=== PATIENT | female | born 1960 | race Caucasian/White ===

== ENCOUNTER 2016-09-27 18:08 | Inpatient (IN) | payer OTHER ==
[~2016-09-27] VITALS: Ht 167.6 cm; Wt 100.0 kg
[~2016-09-27 18:08] MED LIST: ALBU8.5H5 INH; CYCL5TAB PO; DICL75TA2 PO; FENO48TA4 PO; FLOV110 INHALATION; FURO-109 PO; GABA300C16 PO; HYDR-762 PO; IBUP800T25 PO; LISI2.5T59 PO; MONT10TA21 PO; MTF1000T PO; PIOG30TA2 PO; POTA20TA15 PO; QUET200T PO; SERT100T PO; [UNRECOGNIZED DRUG - CODE] PO
--- NOTE | 2016-09-27 21:14 | ERA ---
ER Documentation Chief Complaint Date/Time DATE: 09/27/16 TIME: 21:13 Chief Complaint chest pain HPI The patient is a 56-year-old female, presenting to the ER because she has hot intermittent chest pain for a week, chest pain is worse today about 12 PM, 6/10 , no aggravating or relieving factor. She denies fever, chills, cough, neck pain, chest pain with exertion or vomiting or diaphoresis. She denies abdominal pain, vomiting, dysuria, diarrhea. She does not smoke nor drink Past medical history: Asthma, hypertension, dyslipidemia, depression, diabetes mellitus, chronic low back pain Past surgical history: Appendectomy, hysterectomy ROS All systems reviewed and are negative except as per history of present illness. Medications Home Meds Active Scripts Hydrocodone Bit-Acetaminophen* ([place]*) 10-325 Mg Tablet, 1 TAB PO Q6 Y for PAIN , #20 TAB Prov:SHELTON BIRMINGHAM PA-C 12/23/15 Reported Medications Albuterol Sulfate* (Albuterol Sulfate* HFA) 8.5 Gm Hfa.aer.ad, 1-2 PUFF INH Q4H Y for WHEEZING AND SOB, #1 INHALER 06/06/15 Quetiapine Fumarate* (Seroquel*) 200 Mg Tablet, 200 MG PO HS, TAB 06/06/15 Cyclobenzaprine Hcl* (Cyclobenzaprine Hcl*) 5 Mg Tablet, 5 MG PO TID, #90 TAB 06/06/15 Diclofenac Sodium* (Diclofenac Sodium*) 75 Mg Tablet.dr, 75 MG PO BID, #60 TAB 06/06/15 Fenofibrate Nanocrystallized* (Fenofibrate*) 48 Mg Tablet, 54 MG PO DAILY, TAB 06/06/15 Niacin* (Niaspan*) 1,000 Mg Tablet.sa, 1000 MG PO DAILY, TAB.SA 06/06/15 Fluticasone Propionate* (Flovent* 110) 13 Gm Aer.w.adap, 1 PUFF INHALATION DAILY , #1 INHALER 06/06/15 Gabapentin* (Gabapentin*) 300 Mg Capsule, 300 MG PO DAILY, #60 CAP 06/06/15 Montelukast Sodium* (Singulair*) 10 Mg Tablet, 10 MG PO QHS, #30 TAB 06/06/15 Potassium Chloride* (K-Dur*) 20 Meq Tab.prt.sr, 20 MEQ PO DAILY, TAB.SA 06/06/15 Metformin* (Glucophage*) 1,000 Mg Tablet, 1000 MG PO BID, #60 TAB 06/06/15 Lisinopril* (Lisinopril*) 2.5 Mg Tablet, 2.5 MG PO DAILY, #30 TAB 06/06/15 Furosemide* (Lasix*) 40 Mg Tablet, 40 MG PO DAILY, TAB 06/06/15 Ibuprofen* (Motrin*) 800 Mg Tab, 800 MG PO TID, TAB 06/06/15 Pioglitazone Hcl* (Actos*) 30 Mg Tablet, 30 MG PO DAILY, #30 TAB 06/06/15 Sertraline Hcl* (Zoloft*) 100 Mg Tablet, 100 MG PO DAILY, #30 TAB 06/06/15 Allergies Allergies: Coded Allergies: No Known Allergy (Unverified , 06/06/15) PMhx/Soc History of Surgery: Yes (APPENDECTOMY, PARTIAL HYSTERECTOMY) Anesthesia Reaction: No Hx Neurological Disorder: No Hx Respiratory Disorders: Yes (ASTHMA, BRONCHITIS) Hx Cardiac Disorders: Yes (HTN) Hx Psychiatric Problems: Yes (DEPRSSION) Hx Miscellaneous Medical Probl: Yes (HIGH CHOLESTEROL, HIGH POTASUIM) Hx Alcohol Use: No Hx Substance Use: No Hx Tobacco Use: No Physical Exam Vitals Vital Signs Date Time Temp Pulse Resp B/P Pulse Ox O2 Delivery O2 Flow Rate FiO2 09/27/16 23:00 98.0 91 20 113/63 100 Nasal Cannula 2.0 09/27/16 22:00 Nasal Cannula 2 09/27/16 18:24 98.0 99 20 129/58 96 Physical Exam Const: No acute distress. Head: Atraumatic. Eyes: Normal Conjunctiva. ENT: Normal External Ears, Nose and Mouth. Neck: Full range of motion. No meningismus. Resp: Clear to auscultation bilaterally. Cardio: Regular rate and rhythm, no murmurs. Abd: Soft, non distended, normal bowel sounds, non tender. Skin: No petechiae or rashes. Back: No midline or flank tenderness. Ext: No cyanosis, or edema. Neur: Awake and alert. No focal deficit Psych: Normal Mood and Affect. Result Diagram: 09/27/16220609/27/162206 Results 24 hrs Laboratory Tests Test 09/27/16 00:37 09/27/16 22:07 Creatine Kinase 59IU/L Creatine Kinase Index 0.8 Creatinine Kinase MB (Mass) 0.48ng/ml Troponin I < 0.012ng/ml < 0.012ng/ml White Blood Count 8.810^3/ul Red Blood Count 2.9310^6/ul Hemoglobin 9.1g/dl Hematocrit 28.8% Mean Corpuscular Volume 98.3fl Mean Corpuscular Hemoglobin 31.1pg Mean Corpuscular Hemoglobin Concent 31.6g/dl Red Cell Distribution Width 13.5% Platelet Count 12508^3/UL Mean Platelet Volume 9.9fl Neutrophils % 65.5% Lymphocytes % 23.4% Monocytes % 9.1% Eosinophils % 1.6% Basophils % 0.2% Nucleated Red Blood Cells % 0.0/100WBC Neutrophils # 5.810^3/ul Lymphocytes # 2.110^3/ul Monocytes # 0.810^3/ul Eosinophils # 0.110^3/ul Basophils # 0.010^3/ul Nucleated Red Blood Cells # 0.010^3/ul Prothrombin Time 13.6Sec Prothrombin Time Ratio 1.1 INR International Normalized Ratio 1.04 Activated Partial Thromboplast Time 29.4Sec Sodium Level 141mmol/L Potassium Level 5.7mmol/L Chloride Level 100mmol/L Carbon Dioxide Level 27mmol/L Anion Gap 20 Blood Urea Nitrogen 89mg/dl Creatinine 3.76mg/dl Glucose Level 122mg/dl Calcium Level 9.8mg/dl Current Medications Medications (Trade) Dose Ordered Sig/Nikolas Route PRN Reason Start Time Stop Time Status Last Admin Dose Admin Sodium Polystyrene Sulfonate (Kayexalate) 30 gm ONCE STAT PO 09/27/16 22:41 09/27/16 22:42 DC 09/27/16 23:08 Insulin Human Regular (Novolin-R) 10 unit ONCE STAT IV 09/27/16 22:41 09/27/16 22:42 DC 09/27/16 23:13 Dextrose (D50w Syringe) ONCE PRN IV POC BLOOD GLUCOSE <250 MG/DL 09/27/16 23:00 09/27/16 23:59 DC 09/27/16 23:07 Aspirin (Aspirin) 162 mg ONCE STAT PO 09/27/16 22:50 09/27/16 22:52 DC 09/27/16 23:08 Nitroglycerin (Nitroglycerin 2% Oint) 1 inch ONCE STAT TD 09/27/16 22:50 09/27/16 22:52 DC 09/27/16 23:08 IV Flush (NS 3 ml) 3 ml PER PROTOCOL IV 09/28/16 00:00 UNV Lorazepam (Ativan) 0.5 mg Q8H PRN PO ANXIETY 09/28/16 00:00 Metoclopramide HCl (Reglan) 10 mg Q6H PRN IV NAUSEA AND/OR VOMITING 09/28/16 00:00 Nitroglycerin (Nitroglycerin (Sl Tab) 0.4 Mg) 1 tab Q5M PRN SL CHEST PAIN 09/28/16 00:00 Acetaminophen (Tylenol Tab) 650 mg Q6H PRN PO PAIN LEVEL 1-3 OR FEVER 09/28/16 00:00 Morphine Sulfate (morphine) 4 mg Q4H PRN IV PAIN LEVEL 7-10 09/28/16 00:00 Famotidine (Pepcid) 20 mg Q12 PO 09/28/16 09:00 Insulin Aspart (Novolog Insulin Pen) NOVOLOG *MILD* ALGORITHM WITH MEALS BEDTIME SC 09/28/16 08:00 UNV Miscellaneous Information (* Miscellaneous Pharmacy Order) HYPOGLYCEMIA PROTOCOL w... ONCE ONCE XX 09/28/16 00:00 09/28/16 00:01 UNV Miscellaneous Information (* Miscellaneous Pharmacy Order) Discontinue Glyburide, Glipizide,... ONCE ONCE XX 09/28/16 00:00 09/28/16 00:01 UNV Miscellaneous Information (* Miscellaneous Pharmacy Order) Discontinue all previ... ONCE ONCE XX 09/28/16 00:00 09/28/16 00:01 UNV Diclofenac Sodium (Voltaren) 75 mg BID PO 09/28/16 09:00 UNV Fenofibrate (Tricor) 54 mg DAILY PO 09/28/16 09:00 UNV Furosemide (Lasix) 40 mg DAILY PO 09/28/16 09:00 UNV Gabapentin (Neurontin) 300 mg DAILY PO 09/28/16 09:00 UNV Lisinopril (Zestril) 2.5 mg DAILY PO 09/28/16 09:00 UNV Montelukast Sodium (Singulair) 10 mg QHS PO 09/28/16 21:00 UNV Quetiapine Fumarate (Seroquel) 200 mg HS PO 09/28/16 21:00 UNV Sertraline HCl (Zoloft) 100 mg DAILY PO 09/28/16 09:00 UNV Miscellaneous Information 1 puff DAILY INHALATION 09/28/16 09:00 UNV Albuterol (Proventil 0.083% (Neb)) 5 mg Q4H RESP THERAPY PRN HHN WHEEZING AND SOB 09/28/16 00:00 Procedures/[place] [id number] Radiology Main Line: [phone] DIAGNOSTIC IMAGING REPORT Patient: TONY HERNANDEZ : 1960 Age: 56 Sex: F MR #: [id number] DOS: 09/27/162131 Ordering MD: CHICO LAZO MD Location: E/R Room/Bed: PROCEDURE: XR Chest. CLINICAL INDICATION: Chest pain TECHNIQUE: Single frontal chest x-ray. COMPARISON: CT chest 06/06/2015 FINDINGS: There is mild cardiomegaly. There is prominence of the interstitial markings. There is mild elevation of the left hemidiaphragm. There are no pleural effusions or pneumothoraces. The osseous structures are intact. IMPRESSION: 1. Mild cardiomegaly with pulmonary vascular congestion. RPTAT: HHO .Boris Woo MD, MD Date Time Electronically viewed and signed by .Boris Woo MD, MD on 09/27/2016 22:27 .O/ CC: CHICO LAZO MD EKG: Read by emergency physician Rate/Rhythm: Normal Sinus Rhythm 95 beats/min QRS, ST, T-waves: No ST elevation, no T inversion, right bundle branch block Impression: Abnormal EKG MEDICAL MAKING DECISION: The patient is a 56-year-old female, presenting with acute chest pain, acute kidney injury, acute hyperkalemia. She was treated with aspirin 160 mg p.o. and 1 inch of nitroglycerin for acute chest pain, 1 amp of D50 IV, 10 units of Regular Insulin IV, and Kayexalate 30 g p.o. for acute hyperkalemia good response. The differential diagnoses considered include but are not limited to acute coronary syndrome, acute myocardial infarction, pericarditis, pulmonary embolism , aortic dissection, pneumonia, pleural effusion, pneumothorax, GERD, chest wall pain. Departure Diagnosis: Primary Impression: Chest pain Additional Impressions: Acute hyperkalemia Acute kidney injury Anemia Condition: Stable Comments I discussed the findings with the patient. I discussed the patient with the on- call hospitalist Dr. Lora who was made aware of the lab, the treatment, the patient condition. The patient is admitted to telemetry at 11:40 PM Critical Care: Time: 35 minutes excluding all billable procedures. Treatments/Evaluations: Close monitoring and treatment of unstable vital signs, cardiorespiratory, and neurologic status, while maintaining tight balance of fluid, respiratory, and cardiac interventions. CHICO LAZO MD Sep 27, 2016 21:14
[2016-09-27 22:15] LABS: ADD SCAN DIFF NO
[2016-09-27 22:16] LABS: BASOPHILS % 0.2 % (0.0-2.0); EOSINOPHILS # 0.1 10^3/ul (0.0-0.5); EOSINOPHILS % 1.6 % (0.0-7.0); HEMATOCRIT 28.8 % (37.0-47.0); HEMOGLOBIN 9.1 g/dl (12.0-16.0); LYMPHOCYTES # 2.1 10^3/ul (0.8-2.9); LYMPHOCYTES % 23.4 % (15.0-51.0); MEAN CORPUSCULAR HEMOGLOBIN 31.1 pg (29.0-33.0); MEAN CORPUSCULAR HGB CONC 31.6 g/dl (32.0-37.0); MEAN CORPUSCULAR VOLUME 98.3 fl (82.0-101.0); MEAN PLATELET VOLUME 9.9 fl (7.4-10.4); MONOCYTE # 0.8 10^3/ul (0.3-0.9); MONOCYTES % 9.1 % (0.0-11.0); NEUTROPHIL # 5.8 10^3/ul (1.6-7.5); NEUTROPHILS % 65.5 % (39.0-77.0); PLATELET COUNT 239 10^3/UL (140-415); RED BLOOD COUNT 2.93 10^6/ul (4.20-5.40); RED CELL DISTRIBUTION WIDTH 13.5 % (11.5-14.5); WHITE BLOOD COUNT 8.8 10^3/ul (4.8-10.8)
[2016-09-27 22:27] LABS: CHLORIDE 100 mmol/L (97-110); POTASSIUM 5.7 mmol/L (3.5-5.1); SODIUM 141 mmol/L (135-144)
--- NOTE | 2016-09-27 22:27 | RADRPT ---
PROCEDURE: XR Chest. CLINICAL INDICATION: Chest pain TECHNIQUE: Single frontal chest x-ray. COMPARISON: CT chest 06/06/2015 FINDINGS: There is mild cardiomegaly. There is prominence of the interstitial markings. There is mild elevat ion of the left hemidiaphragm. There are no pleural effusions or pneumothoraces. The osseous struc tures are intact. IMPRESSION: 1. Mild cardiomegaly with pulmonary vascular congestion. RPTAT: HHO .Boris Woo MD, MD Date Time Electronically viewed and signed by .Boris Woo MD, on 09/27/2016 22:27 .O/
[2016-09-27 22:30] LABS: ANION GAP 20 (8-16); BLOOD UREA NITROGEN 89 mg/dl (7-20); CARBON DIOXIDE 27 mmol/L (21-31); CREATININE 3.76 mg/dl (0.44-1.00)
[2016-09-27 22:31] LABS: CALCIUM 9.8 mg/dl (8.4-10.2); GLUCOSE 122 mg/dl (70-220)
[2016-09-27 22:35] LABS: INR 1.04; PROTIME 13.6 Sec (12.2-14.2); PT RATIO 1.1
[2016-09-27 22:36] LABS: PARTIAL THROMBOPLASTIN TIME 29.4 Sec (25.0-35.0)
[2016-09-27] MEDS ORDERED: INSULIN REGULAR 10 ML INJ IV STA (22:41)
[2016-09-27] MEDS ORDERED: NA POLYST SULFON 15 GM/60 ML BTL PO STA (22:41)
[2016-09-27 22:43] LABS: TROPONIN-I < 0.012 ng/ml (0.00-0.12)
[2016-09-27] MEDS ORDERED: NITROGLYCERIN 2% 1 GM OINT PKT TD STA (22:50)
[2016-09-27] MEDS ORDERED: ASPIRIN 81 MG TAB PO STA (22:50)
[2016-09-27] MEDS ORDERED: DEXTROSE 50% 50 ML SYRINGE IV PRN (23:00)
--- NOTE | 2016-09-27 23:54 | HP ---
Date/Time of Note Date/Time of Note DATE: 09/27/16 TIME: 23:53 Assessment/Plan VTE Prophylaxis VTE Prophylaxis Intervention: anti-embolic stocking Lines/Catheters IV Catheter Type (from Nrsg): Saline Lock Assessment/Plan Assessment/Plan 1) Chest pain - Admit to Telemetry - Serial Enzymes - Pain Control - Echocardiogram 2) Hyperkalemia, K+ 5.5 - Kayexalate given in ED 3) DM Type 2 - Diabetic Diet - Accu Chek AC and HS - Mild Sliding Scale 4) Anemia, Hgb 10 - CBC in AM 5) Acute kidney injury, Cr 3.8, Last Cr in 2014 was 1 with elevated BUN 89, in 2015 BUN 0.91 - Consider Nephrology Referral HPI/ROS Admit Date/Time Admit Date/Time 09/27/16 2343 Hx of Present Illness The patient is a 56-year-old female, presenting to the ER because she has hot intermittent chest pain for a week, chest pain is worse today about 12 PM, 11/17 , no aggravating or relieving factor. She denies fever, chills, cough, neck pain, chest pain with exertion or vomiting or diaphoresis. She denies abdominal pain, vomiting, dysuria, diarrhea. She does not smoke nor drink ROS General: Admits: Denies: Fever, Chills, Poor Appetite, Generalized Body Aches Eyes: Admits: Denies: Blurry Vision, Double Vision HENT: Admits: Denies: Ear Pain/Pressure, Runny/Stuffy Nose, Sore Throat Cardiovascular: Admits: Chest Pain, Denies: Palpitations, Leg Swelling Pulmonary: Admits: Denies: Cough, Wheeze, Shortness of Breath Gastrointestinal: Admits: Denies: Abdominal Pain, Nausea, Vomiting, Diarrhea, Blood in Stool, Black-Colored Stool Urogenital: Admits: Denies: Burning with Urination, Urinary Frequency, Blood in Urine Musculoskeletal: Admits: Denies: Joint Pain, Joint Swelling, Muscle Pain Neurological: Admits: Denies: Headache, Dizziness, Numbness, Tingling, Shooting Pains Integumentary: Admits: Denies: Rash, Itch PMH/Family/Social Past Medical History Asthma, bronchitis, hypertension, dyslipidemia, depression, diabetes mellitus, chronic low back pain, high potassium Past Surgical History Appendectomy, hysterectomy Social History Alcohol Use: none Smoking Status: Never smoker Drug Use: none Exam/Review of Systems Vital Signs Vitals Vital Signs Date Time Temp Pulse Resp B/P Pulse Ox O2 Delivery O2 Flow Rate FiO2 09/27/16 23:00 98.0 91 20 113/63 100 Nasal Cannula 2.0 Exam Exam General: Overweight female, alert, in no acute distress Eyes: Sclera White HENT: Normocephalic/Atraumatic, External Ears/Nose Normal, Moist Mucus Membranes Neck: Supple, Trachea Midline Cardiovascular: Normal Rate, Regular Rhythm, Normal S1 and S2, No Murmur, No Extra Sounds. Radial pulse +2/4. No pedal Edema. Pulmonary: Clear to Auscultation Bilaterally, Normal Respiratory Effort, No Rales, Rhonchi or Wheezes Gastrointestinal: Normoactive Bowel Sounds, Soft, Non-Tender/Non-Distended, No Hepatosplenomegaly Appreciated, No Pulsatile Masses Urogenital: Deferred Musculoskeletal: Normal Muscle Bulk and Tone Neurological: CN II - XII Grossly Intact, Non-Focal, Speech Normal Integumentary: Normal Moisture and Temperature, Good Turgor, No Jaundice, No Rash Lymphatic: No Cervical Lymphadenopathy Psychiatric: Appropriate Mood and Affect, Good Eye Contact Labs Result Diagram: 09/27/16220609/27/162206 Medications Medications Home Meds Active Scripts Hydrocodone Bit-Acetaminophen* ([place]*) 10-325 Mg Tablet, 1 TAB PO Q6 Y for PAIN , #20 TAB Prov:SHELTON BIRMINGHAM PA-C 12/23/15 Reported Medications Albuterol Sulfate* (Albuterol Sulfate* HFA) 8.5 Gm Hfa.aer.ad, 1-2 PUFF INH Q4H Y for WHEEZING AND SOB, #1 INHALER 06/06/15 Quetiapine Fumarate* (Seroquel*) 200 Mg Tablet, 200 MG PO HS, TAB 06/06/15 Cyclobenzaprine Hcl* (Cyclobenzaprine Hcl*) 5 Mg Tablet, 5 MG PO TID, #90 TAB 06/06/15 Diclofenac Sodium* (Diclofenac Sodium*) 75 Mg Tablet.dr, 75 MG PO BID, #60 TAB 06/06/15 Fenofibrate Nanocrystallized* (Fenofibrate*) 48 Mg Tablet, 54 MG PO DAILY, TAB 06/06/15 Niacin* (Niaspan*) 1,000 Mg Tablet.sa, 1000 MG PO DAILY, TAB.SA 06/06/15 Fluticasone Propionate* (Flovent* 110) 13 Gm Aer.w.adap, 1 PUFF INHALATION DAILY , #1 INHALER 06/06/15 Gabapentin* (Gabapentin*) 300 Mg Capsule, 300 MG PO DAILY, #60 CAP 06/06/15 Montelukast Sodium* (Singulair*) 10 Mg Tablet, 10 MG PO QHS, #30 TAB 06/06/15 Potassium Chloride* (K-Dur*) 20 Meq Tab.prt.sr, 20 MEQ PO DAILY, TAB.SA 06/06/15 Metformin* (Glucophage*) 1,000 Mg Tablet, 1000 MG PO BID, #60 TAB 06/06/15 Lisinopril* (Lisinopril*) 2.5 Mg Tablet, 2.5 MG PO DAILY, #30 TAB 06/06/15 Furosemide* (Lasix*) 40 Mg Tablet, 40 MG PO DAILY, TAB 06/06/15 Ibuprofen* (Motrin*) 800 Mg Tab, 800 MG PO TID, TAB 06/06/15 Pioglitazone Hcl* (Actos*) 30 Mg Tablet, 30 MG PO DAILY, #30 TAB 06/06/15 Sertraline Hcl* (Zoloft*) 100 Mg Tablet, 100 MG PO DAILY, #30 TAB 06/06/15 Current Medications Medications (Trade) Dose Ordered Sig/Nikolas Route PRN Reason Start Time Stop Time Status Last Admin Dose Admin Sodium Polystyrene Sulfonate (Kayexalate) 30 gm ONCE STAT PO 09/27/16 22:41 09/27/16 22:42 DC 09/27/16 23:08 Insulin Human Regular (Novolin-R) 10 unit ONCE STAT IV 09/27/16 22:41 09/27/16 22:42 DC 09/27/16 23:13 Dextrose (D50w Syringe) ONCE PRN IV POC BLOOD GLUCOSE <250 MG/DL 09/27/16 23:00 09/27/16 23:59 DC 09/27/16 23:07 Aspirin (Aspirin) 162 mg ONCE STAT PO 09/27/16 22:50 09/27/16 22:52 DC 09/27/16 23:08 Nitroglycerin (Nitroglycerin 2% Oint) 1 inch ONCE STAT TD 09/27/16 22:50 09/27/16 22:52 DC 09/27/16 23:08 IV Flush (NS 3 ml) 3 ml PER PROTOCOL IV 09/28/16 00:00 UNV Lorazepam (Ativan) 0.5 mg Q8H PRN PO ANXIETY 09/28/16 00:00 Metoclopramide HCl (Reglan) 10 mg Q6H PRN IV NAUSEA AND/OR VOMITING 09/28/16 00:00 Nitroglycerin (Nitroglycerin (Sl Tab) 0.4 Mg) 1 tab Q5M PRN SL CHEST PAIN 09/28/16 00:00 Acetaminophen (Tylenol Tab) 650 mg Q6H PRN PO PAIN LEVEL 1-3 OR FEVER 09/28/16 00:00 Morphine Sulfate (morphine) 4 mg Q4H PRN IV PAIN LEVEL 7-10 09/28/16 00:00 Famotidine (Pepcid) 20 mg Q12 PO 09/28/16 09:00 Insulin Aspart (Novolog Insulin Pen) NOVOLOG *MILD* ALGORITHM WITH MEALS BEDTIME SC 09/28/16 08:00 UNV Miscellaneous Information (* Miscellaneous Pharmacy Order) HYPOGLYCEMIA PROTOCOL w... ONCE ONCE XX 09/28/16 00:00 09/28/16 00:01 UNV Miscellaneous Information (* Miscellaneous Pharmacy Order) Discontinue Glyburide, Glipizide,... ONCE ONCE XX 09/28/16 00:00 09/28/16 00:01 UNV Miscellaneous Information (* Miscellaneous Pharmacy Order) Discontinue all previ... ONCE ONCE XX 09/28/16 00:00 09/28/16 00:01 UNV Diclofenac Sodium (Voltaren) 75 mg BID PO 09/28/16 09:00 UNV Fenofibrate (Tricor) 54 mg DAILY PO 09/28/16 09:00 UNV Furosemide (Lasix) 40 mg DAILY PO 09/28/16 09:00 UNV Gabapentin (Neurontin) 300 mg DAILY PO 09/28/16 09:00 UNV Lisinopril (Zestril) 2.5 mg DAILY PO 09/28/16 09:00 UNV Montelukast Sodium (Singulair) 10 mg QHS PO 09/28/16 21:00 UNV Quetiapine Fumarate (Seroquel) 200 mg HS PO 09/28/16 21:00 UNV Sertraline HCl (Zoloft) 100 mg DAILY PO 09/28/16 09:00 UNV Miscellaneous Information 1 puff DAILY INHALATION 09/28/16 09:00 UNV Albuterol (Proventil 0.083% (Neb)) 5 mg Q4H RESP THERAPY PRN HHN WHEEZING AND SOB 09/28/16 00:00 Procedures Procedures Laboratory Tests Test 09/27/16 00:37 09/27/16 22:07 Creatine Kinase 59IU/L Creatine Kinase Index 0.8 Creatinine Kinase MB (Mass) 0.48ng/ml Troponin I < 0.012ng/ml < 0.012ng/ml White Blood Count 8.810^3/ul Red Blood Count 2.9310^6/ul Hemoglobin 9.1g/dl Hematocrit 28.8% Mean Corpuscular Volume 98.3fl Mean Corpuscular Hemoglobin 31.1pg Mean Corpuscular Hemoglobin Concent 31.6g/dl Red Cell Distribution Width 13.5% Platelet Count 00132^3/UL Mean Platelet Volume 9.9fl Neutrophils % 65.5% Lymphocytes % 23.4% Monocytes % 9.1% Eosinophils % 1.6% Basophils % 0.2% Nucleated Red Blood Cells % 0.0/100WBC Neutrophils # 5.810^3/ul Lymphocytes # 2.110^3/ul Monocytes # 0.810^3/ul Eosinophils # 0.110^3/ul Basophils # 0.010^3/ul Nucleated Red Blood Cells # 0.010^3/ul Prothrombin Time 13.6Sec Prothrombin Time Ratio 1.1 INR International Normalized Ratio 1.04 Activated Partial Thromboplast Time 29.4Sec Sodium Level 141mmol/L Potassium Level 5.7mmol/L Chloride Level 100mmol/L Carbon Dioxide Level 27mmol/L Anion Gap 20 Blood Urea Nitrogen 89mg/dl Creatinine 3.76mg/dl Glucose Level 122mg/dl Calcium Level 9.8mg/dl EKG: Read by emergency physician Rate/Rhythm: Normal Sinus Rhythm 95 beats/min QRS, ST, T-waves: No ST elevation, no T inversion, right bundle branch block Impression: Abnormal EKG PROCEDURE: XR Chest. CLINICAL INDICATION: Chest pain TECHNIQUE: Single frontal chest x-ray. COMPARISON: CT chest 06/06/2015 FINDINGS: There is mild cardiomegaly. There is prominence of the interstitial markings. There is mild elevation of the left hemidiaphragm. There are no pleural effusions or pneumothoraces. The osseous structures are intact. IMPRESSION: 1. Mild cardiomegaly with pulmonary vascular congestion. SEPIDEH ESCALANTE DO Sep 27, 2016 23:54
[2016-09-28] MEDS ORDERED: NITROGLYCERIN (SL) 0.4 MG TAB SL PRN
[2016-09-28] MEDS ORDERED: ALBUTEROL 0.083% (NEB) 2.5 MG/3 ML AMP HHN PRN
[2016-09-28] MEDS ORDERED: METOCLOPRAMIDE 10 MG INJ IV PRN
[2016-09-28] MEDS ORDERED: NACL 0.9% 3 ML SYG IV SCH
[2016-09-28] MEDS ORDERED: LORAZEPAM 0.5 MG TAB PO PRN
[2016-09-28 01:03] LABS: CREATINE KINASE 59 IU/L (23-200)
[2016-09-28 01:13] LABS: CK-MB 0.48 ng/ml (0.0-2.4)
[2016-09-28 01:17] LABS: TROPONIN-I < 0.012 ng/ml (0.00-0.12)
[2016-09-28] MEDS: morphine 4 MG/ML VIAL IV PRN (02:00)
[2016-09-28] MEDS ORDERED: DEXTROSE 50% 50 ML SYRINGE IV PRN ×2 (02:30)
[2016-09-28] MEDS ORDERED: GLUCOSE GEL 15 GRAM TUBE PO PRN ×2 (02:30)
[2016-09-28] MEDS ORDERED: GLUCAGON 1 MG INJ IM PRN (02:30)
[2016-09-28] MEDS ORDERED: GLUCOSE GEL 15 GRAM TUBE BUCCAL PRN (02:30)
[2016-09-28] MEDS ORDERED: DEXTROSE 50% 50 ML SYRINGE IV ONE (04:30)
[2016-09-28 05:24] LABS: ADD SCAN DIFF NO
[2016-09-28 05:30] LABS: BASOPHILS % 0.1 % (0.0-2.0); EOSINOPHILS # 0.1 10^3/ul (0.0-0.5); EOSINOPHILS % 1.8 % (0.0-7.0); HEMATOCRIT 27.9 % (37.0-47.0); HEMOGLOBIN 8.3 g/dl (12.0-16.0); LYMPHOCYTES # 1.5 10^3/ul (0.8-2.9); MEAN CORPUSCULAR HEMOGLOBIN 29.2 pg (29.0-33.0); MEAN CORPUSCULAR HGB CONC 29.7 g/dl (32.0-37.0); MEAN CORPUSCULAR VOLUME 98.2 fl (82.0-101.0); MEAN PLATELET VOLUME 10.5 fl (7.4-10.4); MONOCYTE # 0.6 10^3/ul (0.3-0.9); NEUTROPHIL # 4.8 10^3/ul (1.6-7.5); NEUTROPHILS % 67.8 % (39.0-77.0); PLATELET COUNT 235 10^3/UL (140-415); RED BLOOD COUNT 2.84 10^6/ul (4.20-5.40); RED CELL DISTRIBUTION WIDTH 13.7 % (11.5-14.5); WHITE BLOOD COUNT 7.1 10^3/ul (4.8-10.8)
[2016-09-28 05:38] LABS: CREATINE KINASE 50 IU/L (23-200)
[2016-09-28 05:52] LABS: CK-MB 0.46 ng/ml (0.0-2.4)
[2016-09-28 05:53] LABS: CALCIUM 9.8 mg/dl (8.4-10.2); CHOL/HDL RATIO 4.6 RATIO; CREATININE 3.35 mg/dl (0.44-1.00); POTASSIUM 5.5 mmol/L (3.5-5.1); TROPONIN-I < 0.012 ng/ml (0.00-0.12)
[2016-09-28 06:24] LABS: THYROID STIMULATING HORMONE 0.599 MIU/L (0.465-4.680)
[2016-09-28 06:45] VITALS: TEMP 98.1
[2016-09-28] MEDS: INSULIN ASPART [NOVOLOG] 3 ML PEN SC SCH ×4 (08:00→23:20)
[2016-09-28] MEDS: FENOFIBRATE 48 MG TAB PO SCH (10:51)
[2016-09-28] MEDS: GABAPENTIN 300 MG CAP PO SCH (10:51)
[2016-09-28] MEDS: FAMOTIDINE 20 MG TAB PO SCH ×2 (10:51→21:50)
[2016-09-28] MEDS: SERTRALINE 100 MG TAB PO SCH (10:51)
[2016-09-28] MEDS ORDERED: DICLOFENAC (EC) 75 MG TAB PO SCH (11:00)
[2016-09-28] MEDS ORDERED: LISINOPRIL 5 MG TAB PO SCH (11:00)
[2016-09-28] MEDS ORDERED: FUROSEMIDE 40 MG TAB PO SCH (11:00)
--- NOTE | 2016-09-28 12:58 | RADRPT ---
PROCEDURE: Renal US. CLINICAL INDICATION: Acute kidney injury TECHNIQUE: Multiple sonographic images of the kidneys were obtained. The images were reviewed on a PACS workstation. COMPARISON: No prior studies are available for comparison. FINDINGS: The kidneys are well visualized. The right kidney measures 10.8 cm. The left kidney measures 9.8 cm. There are no focal areas of abnormal echogenicity. There is no evidence for obstructive uropathy. T he bladder is unremarkable. IMPRESSION: 1. Unremarkable renal ultrasound. RPTAT:AAJJ Physician Kelli Date Time Electronically viewed and signed by Physician Kelli on 09/28/2016 12:57 GABY/
--- NOTE | 2016-09-28 13:33 | CONS ---
DATE OF ADMISSION: 09/27/2016 DATE OF CONSULTATION: 09/28/2016 TYPE OF CONSULTATION: Nephrology. REASON FOR CONSULTATION: Acute kidney injury, hyperkalemia. PHYSICIAN REQUESTING CONSULT: Dr. Hu HISTORY OF PRESENT ILLNESS: This is a 56-year-old female with a past medical history of CKD, with a n unknown baseline creatinine, a history of diabetes, dyslipidemia, hypertension, a history of asthm a, a history of chronic lower back pain, who presented to [facility] with chest pa in described as a 11/17, with no alleviating or aggravating factors. The patient upon arrival to the emergency room had laboratory data drawn which showed a BUN of 89, creatinine 3.76 and a potassium of 5.7. The patient had a chest x-ray which showed findings of pulmonary vascular congestion. In [facility] emergency room the patient was given aspirin, nitroglycerin, Kayexalate and insulin. The patient had serial troponins checked, which were negative. In terms of the patient's renal history, the patient says she sees a horticulture instructor, but does not know the horticulture instructor's name. The patient does not know what her baseline renal function is. She belie ves she said she was told that her chronic kidney disease was due to her underlying diabetes and hyp ertension. The patient also states she has a history of kidney stones. She denies any frothy urine , denies any hematuria, dysuria, hemoptysis or rashes. PAST MEDICAL HISTORY: History of CKD, a history of hypertension, a history of asthma, depression, d yslipidemia. PAST SURGICAL HISTORY: History of a partial hysterectomy, appendectomy. FAMILY HISTORY: Noncontributory. SOCIAL HISTORY: She does not drink, smoke or do drugs. ALLERGIES: NO KNOWN DRUG ALLERGIES. REVIEW OF SYSTEMS: A 14-point review of systems was conducted. Pertinent positives as stated in [facility] HPI, otherwise negative. PHYSICAL EXAMINATION: VITAL SIGNS: Blood pressure is 102/68, respirations 10, pulse 74, temperature 98.1. HEENT: Head is normocephalic. Pupils are reactive to light. NECK: Supple. HEART: Regular rate. LUNGS: Showed diminished breath sounds at the base. ABDOMEN: Soft, nontender to palpation. No rebound or guarding. EXTREMITIES: Negative for clubbing or cyanosis. There is noted +1 edema. DERMATOLOGIC: No rashes. MUSCULOSKELETAL: Have no joint effusion. NEUROLOGIC: No focal deficits. LABORATORY DATA: Shows a sodium of 140, potassium 5.5, BUN 89, creatinine 3.35. WBC 7.1, hemoglobi n 8.3, hematocrit of 27.9, platelet count 235. ASSESSMENT AND PLAN: This is a 56-year-old female who presents with: 1. Nonoliguric acute kidney injury, with possible chronic kidney disease, with a previous baseline creatinine in 2015 of 1 mg/dL. Etiology of current acute kidney injury is multifactorial secondary to hemodynamics, NSAID use, TONYA inhibitor effect. The possibility of tubular injury is a considerat ion. Plan at this point is to do a full evaluation. Will check a urinalysis. Will evaluate under microscopy to see if there is any evidence of active sediment or tubular casts. Will check urine el ectrolytes, calculate a FENa (fractional excretion of urea). Will check a renal ultrasound to rule out obstruction. Would recommend to hold TONYA inhibitor at this time. Would consider holding diure tic therapy. Would otherwise continue supportive care, renally dose all meds, avoid nephrotoxins. Will repeat a renal panel to see if the patient's renal function has improved after receiving a flui d challenge and if hyperkalemia has subsequently improved. Will monitor closely. The patient's NSAI Ds will be discontinued. 2. Hyperkalemia. Etiology is multifactorial secondary to acute kidney injury, TONYA inhibitor effect , and NSAID use. The patient is status post Kayexalate and IV insulin. Plan is to hold TONYA inhibit or. Will place the patient on a low potassium renal diet and will repeat a potassium level. 3. Mineral bone disorder. Will check PTH and vitamin D25 level. Monitor calcium and phosphorus le vels. 4. Anemia, likely of chronic disease. Will monitor H and H levels. 5. Chest pain. Etiology is unclear if this is cardiac or musculoskeletal. The patient is being ru led out for acute coronary syndrome. Continue the current medical management, check serial troponin s, and follow up with the primary team. 6. Diabetes. Continue the current insulin regimen. 7. History of hypertension. Continue to monitor blood pressure. 8. Dyslipidemia. Continue statin therapy. 9. Morbid obesity. Continue dietary modifications. 10. Depression. Continue Seroquel and Zoloft. 11. History of asthma. Continue nebulizers and Singulair. Thank you, Dr. Hu, for this interesting consult. It will be a pleasure to follow up this patient w ith susan throughout the hospital course. Dictated By: EDMOND PEARCE/NAHUM Conf#: [id number] DID#: [id number]
--- NOTE | 2016-09-28 13:48 | RADRPT ---
Echocardiogram Report Patient Name: TONY HERNANDEZ Gender: Female Date: 1960 Study Date: 28-Sep-2016 Bed Laster: Hernán Ochoa RDCS Location: [facility] Ref. Physician: SEPIDEH ESCALANTE Quality: Adequate Procedures: Transthoracic echocardiogram with complete 2D, M-Mode, and doppler examination. Indications: Chest Pain. 2D/M Mode Doppler Measurement Value Normal Ranges Measurement Value Normal Ranges LVIDd 2D 4.3 3.5 - 5.6 cm AV Mean Benji 1.5 m/sec LVIDs 2D 2.3 2.1 - 4.1 cm AV Mean PG 10.1 mmHg LVPWd 2D 0.9 0.6 - 1.1 cm AV Peak Benji 2.3 m/sec IVSd 2D 1.0 0.6 - 1.1 cm AV Peak PG 20.8 mmHg AoR Diam 2D 2.3 2.0 - 3.7 cm AV VTI 40.3 cm EDV 2D 83.8 cm3 LVOT Mean Benji 1.1 m/sec ESV 2D 12.3 cm3 LVOT Mean PG 5.9 mmHg LA Dimen 2D 3.2 2.3 - 4.0 cm LVOT Peak Benji 1.7 m/sec LVOT Peak PG 11.4 mmHg LVOT VTI 32.3 cm MV E Peak Benji 0.7 m/sec MV A Peak Benji 1.0 m/sec MV E/A 0.7 MV Decel Time 145 msec MV Decel Keith 5 MV E/A 0.7 Findings Left Ventricle: Hyperdynamic left ventricular systolic function. Normal left ventricular cavity size. Normal left ventricular wall thickness. Ejection fraction is visually estimated at 70 %. Tissue Doppler/Mitral Doppler indices are consistent with impaired relaxation (Stage I diastolic dysfunction). Right Ventricle: Normal right ventricular size. Normal right ventricular systolic function. Left Atrium: The left atrium is normal in size. Right Atrium: The right atrium is normal in size. Mitral Valve: Normal appearance of the mitral valve. Mild mitral annular calcification. Trace mitral regurgitation. Aortic Valve: Aortic sclerosis without stenosis. Trace aortic valve regurgitation. Tricuspid Valve: Normal appearance and function of the tricuspid valve with trace physiologic regurgitation. Pulmonic Valve: Normal pulmonic valve appearance. Pericardium: Normal pericardium with no significant pericardial effusion. Aorta: Normal aortic root. IVC: Normal size and normal respiratory collapse consistent with normal right atrial pressure. Conclusions 1.Hyperdynamic left ventricular systolic function. Normal left ventricular cavity size. Normal left ventricular wall thickness. Ejection fraction is visually estimated at 70 %. Tissue Doppler/Mitral Doppler indices are consistent with impaired relaxation (Stage I diastolic dysfunction). 2.Normal right ventricular size. Normal right ventricular systolic function. 3.The left atrium is normal in size. 4.The right atrium is normal in size. 5.No significant valvular stenosis or regurgitation seen. 6.Normal pericardium with no significant pericardial effusion. Electronically Signed By: Aguilar Mays 28-Sep-2016 13:47:15 -0700 Patient Name: TONY HERNANDEZ Study Date: 28-Sep-2016 [id number]
[2016-09-28 16:15] LABS: POTASSIUM 4.7 mmol/L (3.5-5.1)
[2016-09-28 16:17] LABS: CREATINE KINASE 53 IU/L (23-200)
[2016-09-28 16:18] LABS: CALCIUM 9.6 mg/dl (8.4-10.2); CREATININE 2.67 mg/dl (0.44-1.00)
--- NOTE | 2016-09-28 16:20 | PN ---
Date/Time of Note Date/Time of Note DATE: 09/28/16 TIME: 16:00 Assessment/Plan VTE Prophylaxis VTE Prophylaxis Intervention: LMWH ( ) Lines/Catheters IV Catheter Type (from Nrs): Saline Lock Assessment/Plan Assessment/Plan 56-year-old female who presents with: 1. Chest pain r/o ACS 2. Acute kidney injury, with possible chronic kidney disease Etiology is multifactorial secondary to acute kidney injury, TONYA inhibitor effect, and NSAID use. 3. LUE paresis and paresthesias : May be associated with #1 or separate pathology 4. Severe disabling carlos Low back pain 5 . Hyperkalemia. 6. Diabetes Type 2. 7. Hypertension 8. Dyslipidemia. 9. Morbid obesity BMI 35 10. Chronic Depression. 11. History of asthma. Plan: * Echo reviewed and unremarkable save for hyperdynamic circulation noted / thyroid function wnl however * Complete ACS workup / Will have cardio review * CT brain and C spine in view of extremity paresis and numbness * CT abd and pelvis to eval carlos flank / back pain * Calorie controlled diet / SSI / home meds * PRN pain control/ antiemetics/ antipyretics/ supportive care * Further interventions per clinical course Subjective 24 Hr Interval Summary Free Text/Dictation Patient seen and evaluated. Has multiple complaints. 1. Weakness and paresthesias: Patient reports dropping things and inability to hold her cellphone by her left hand without dropping it. Reports his symptoms have been worsening over the last 3-6 days. Also has some numbness on the left side of her neck and her shoulders. 2. Patient also complaining of severe low back pain. States she seen a doctor multiple times for this. Reports never been worked up for this. It's not clear if these symptoms are associated with chest pain. Patient is a very poor historian. Exam/Review of Systems Vital Signs Vitals Vital Signs Date Time Temp Pulse Resp B/P Pulse Ox O2 Delivery O2 Flow Rate FiO2 09/28/16 10:00 99 15 107/75 100 Nasal Cannula 4.0 09/28/16 06:45 98.1 Exam Constitutional: alert, obese, No distress Psych: other (blank affect, poor speech direction) Head: atraumatic, normocephalic Eyes: PERRL, No icteric ENMT: mucosa pink and moist Neck: non-tender, supple, No jvd, No thyromegaly Respiratory: clear to auscultation, diminished breath sounds Cardiovascular: regular rate and rhythm, No murmurs/extra sounds Gastrointestinal: bowel sounds, distended (obese), non-tender, soft Extremities: edema (mild, non pitting versus obese) Neurological: nl mental status, nl speech, No confused, No focal weakness Skin: No rash or lesions Results Result Diagram: 09/28/16 0438 09/28/16 0438 Results 24 hrs Laboratory Tests Test 09/27/16 22:07 09/28/16 04:00 09/28/16 04:38 09/28/16 06:41 White Blood Count 8.8 # 7.1 Red Blood Count 2.93 #L 2.84 L Hemoglobin 9.1 #L 8.3 L Hematocrit 28.8 #L 27.9 L Mean Corpuscular Volume 98.3 98.2 Mean Corpuscular Hemoglobin 31.1 29.2 Mean Corpuscular Hemoglobin Concent 31.6 L 29.7 L Red Cell Distribution Width 13.5 13.7 Platelet Count 239 235 Mean Platelet Volume 9.9 # 10.5 H Neutrophils % 65.5 67.8 Lymphocytes % 23.4 21.0 Monocytes % 9.1 9.0 Eosinophils % 1.6 1.8 Basophils % 0.2 0.1 Nucleated Red Blood Cells % 0.0 0.0 Neutrophils # 5.8 4.8 Lymphocytes # 2.1 1.5 Monocytes # 0.8 0.6 Eosinophils # 0.1 0.1 Basophils # 0.0 0.0 Nucleated Red Blood Cells # 0.0 0.0 Prothrombin Time 13.6 Prothrombin Time Ratio 1.1 INR International Normalized Ratio 1.04 Activated Partial Thromboplast Time 29.4 Sodium Level 141 140 Potassium Level 5.7 H 5.5 H Chloride Level 100 105 Carbon Dioxide Level 27 25 Anion Gap 20 H 16 Blood Urea Nitrogen 89 H 89 H Creatinine 3.76 H 3.35 H Glucose Level 122 141 Hemoglobin A1c 6.1 H Calcium Level 9.8 9.8 Magnesium Level 2.2 Troponin I < 0.012 < 0.012 Bedside Glucose 54 L 87 Creatine Kinase 50 Creatine Kinase Index 0.9 Creatinine Kinase MB (Mass) 0.46 Triglycerides Level 175 H Cholesterol Level 194 LDL Cholesterol, Calculated 117 HDL Cholesterol 42 Cholesterol/HDL Ratio 4.6 Thyroid Stimulating Hormone (TSH) 0.599 Test 09/28/16 10:41 09/28/16 12:36 Bedside Glucose 107 131 Medications Medications Current Medications Lorazepam (Ativan) 0.5 mg Q8H PRN PO ANXIETY; Start 09/28/16 at 00:00 Metoclopramide HCl (Reglan) 10 mg Q6H PRN IV NAUSEA AND/OR VOMITING Last administered on 09/28/16 01:59; Admin Dose 10 MG; Start 09/28/16 at 00:00 Nitroglycerin (Nitroglycerin (Sl Tab) 0.4 Mg) 1 tab Q5M PRN SL CHEST PAIN; Start 09/28/16 at 00:00 Acetaminophen (Tylenol Tab) 650 mg Q6H PRN PO PAIN LEVEL 1-3 OR FEVER; Start at 00:00 Morphine Sulfate (morphine) 4 mg Q4H PRN IV PAIN LEVEL 7-10 Last administered on 09/28/16 02:00; Admin Dose 4 MG; Start 09/28/16 at 00:00 Famotidine (Pepcid) 20 mg Q12 PO Last administered on 09/28/16 10:51; Admin Dose 20 MG; Start 09/28/16 at 09:00 Fenofibrate (Tricor) 48 mg DAILY PO Last administered on 09/28/16 10:51; Admin Dose 48 MG; Start 09/28/16 at 11:00 Furosemide (Lasix) 40 mg DAILY PO Last administered on 09/28/16 10:53; Admin Dose 40 MG; Start 09/28/16 at 11:00; Status Future Hold Gabapentin (Neurontin) 300 mg DAILY PO Last administered on 09/28/16 10:51; Admin Dose 300 MG; Start 09/28/16 at 11:00 Lisinopril (Zestril) 2.5 mg DAILY PO Last administered on 09/28/16 10:52; Admin Dose 2.5 MG; Start 09/28/16 at 11:00; Status Future Hold Montelukast Sodium (Singulair) 10 mg QHS PO ; Start 09/28/16 at 21:00 Quetiapine Fumarate (Seroquel) 200 mg HS PO ; Start 09/28/16 at 21:00 Sertraline HCl (Zoloft) 100 mg DAILY PO Last administered on 09/28/16 10:51; Admin Dose 100 MG; Start 09/28/16 at 11:00 Mometasone Furoate (Asmanex) 1 puff DAILY INH ; Start 09/29/16 at 09:00 Miscellaneous Information 1 ea NOTE XX ; Start 09/28/16 at 02:30 Glucose (Glutose) 15 gm Q15M PRN PO DECREASED GLUCOSE; Start 09/28/16 at 02:30 Glucose (Glutose) 22.5 gm Q15M PRN PO DECREASED GLUCOSE; Start 09/28/16 at 02: 30 Dextrose (D50w Syringe) 25 ml Q15M PRN IV DECREASED GLUCOSE Last administered on 09/28/16 04:03; Admin Dose 50 ML; Start 09/28/16 at 02:30 Dextrose (D50w Syringe) 50 ml Q15M PRN IV DECREASED GLUCOSE; Start 09/28/16 at 02:30 Glucagon (Glucagen) 1 mg Q15M PRN IM DECREASED GLUCOSE; Start 09/28/16 at 02:30 Glucose (Glutose) 15 gm Q15M PRN BUCCAL DECREASED GLUCOSE; Start 09/28/16 at 02 :30 Diagnostic Test (Pha) (Accu-Chek) 1 ea 02 XX ; Start 09/29/16 at 02:00 Procedures Procedures PROCEDURE: Renal US. CLINICAL INDICATION: Acute kidney injury TECHNIQUE: Multiple sonographic images of the kidneys were obtained. The images were reviewed on a PACS workstation. COMPARISON: No prior studies are available for comparison. FINDINGS: The kidneys are well visualized. The right kidney measures 10.8 cm. The left kidney measures 9.8 cm. There are no focal areas of abnormal echogenicity. There is no evidence for obstructive uropathy. The bladder is unremarkable. IMPRESSION: 1. Unremarkable renal ultrasound. RPTAT:AAJJ Physician Kelli Date Time Electronically viewed and signed by Juaquin Patel Physician on 09/28/2016 12: 57 MC/ CC: EDMOND MONTEZ DO Echocardiogram Report Patient Name: TONY HERNANDEZ Gender: Female Date: 1960 Study Date: 28-Sep-2016 Band Cutter: Hernán Ochoa RDCS Location: [facility] Ref. Physician: SEPIDEH ESCALANTE Quality: Adequate Procedures: Transthoracic echocardiogram with complete 2D, M-Mode, and doppler examination. Indications: Chest Pain. 2D/M Mode Doppler Measurement Value Normal Ranges Measurement Value Normal Ranges LVIDd 2D 4.3 3.5 - 5.6 cm AV Mean Benji 1.5 m/sec LVIDs 2D 2.3 2.1 - 4.1 cm AV Mean PG 10.1 mmHg LVPWd 2D 0.9 0.6 - 1.1 cm AV Peak Benji 2.3 m/sec IVSd 2D 1.0 0.6 - 1.1 cm AV Peak PG 20.8 mmHg AoR Diam 2D 2.3 2.0 - 3.7 cm AV VTI 40.3 cm EDV 2D 83.8 cm3 LVOT Mean Benji 1.1 m/sec ESV 2D 12.3 cm3 LVOT Mean PG 5.9 mmHg LA Dimen 2D 3.2 2.3 - 4.0 cm LVOT Peak Benji 1.7 m/sec LVOT Peak PG 11.4 mmHg LVOT VTI 32.3 cm MV E Peak Benji 0.7 m/sec MV A Peak Benji 1.0 m/sec MV E/A 0.7 MV Decel Time 145 msec MV Decel Pitkin 5 MV E/A 0.7 Findings Left Ventricle: Hyperdynamic left ventricular systolic function. Normal left ventricular cavity size. Normal left ventricular wall thickness. Ejection fraction is visually estimated at 70 %. Tissue Doppler/Mitral Doppler indices are consistent with impaired relaxation (Stage I diastolic dysfunction). Right Ventricle: Normal right ventricular size. Normal right ventricular systolic function. Left Atrium: The left atrium is normal in size. Right Atrium: The right atrium is normal in size. Mitral Valve: Normal appearance of the mitral valve. Mild mitral annular calcification. Trace mitral regurgitation. Aortic Valve: Aortic sclerosis without stenosis. Trace aortic valve regurgitation. Tricuspid Valve: Normal appearance and function of the tricuspid valve with trace physiologic regurgitation. Pulmonic Valve: Normal pulmonic valve appearance. Pericardium: Normal pericardium with no significant pericardial effusion. Aorta: Normal aortic root. IVC: Normal size and normal respiratory collapse consistent with normal right atrial pressure. Conclusions 1. Hyperdynamic left ventricular systolic function. Normal left ventricular cavity size. Normal left ventricular wall thickness. Ejection fraction is visually estimated at 70 %. Tissue Doppler/Mitral Doppler indices are consistent with impaired relaxation (Stage I diastolic dysfunction). 2. Normal right ventricular size. Normal right ventricular systolic function. 3. The left atrium is normal in size. 4. The right atrium is normal in size. 5. No significant valvular stenosis or regurgitation seen. 6. Normal pericardium with no significant pericardial effusion. Electronically Signed By: Aguilar Mays 28-Sep-2016 13:47:15 -0700 Patient Name: TONY HERNANDEZ Study Date: 28-Sep-2016 [id number] OMA GATES Sep 28, 2016 16:11
--- NOTE | 2016-09-28 16:23 | CONS ---
Date/Time of Note Date/Time of Note DATE: 09/28/16 TIME: 16:13 Assessment/Plan Assessment/Plan Additional Assessment/Plan Chest, arm, back and neck pain Preserved ejection fraction Acute kidney injury Preserved ejection fraction Hypertension Psychiatric disorder Possible chronic pain syndrome -Patient with multiple symptoms including pain in her arms, difficulty with holding objects, shoulder, neck and chest pain. Pain is elicited with palpation of her arms and shoulders. ECG without significant ischemic abnormalities, serial cardiac enzymes remain negative, echocardiogram with preserved ejection fraction. Of note patient with acute kidney injury and hyperkalemia. She has been trying to see a pain specialist secondary to her chronic pain. At the current time, management of her acute kidney injury takes precedence given the atypical symptoms unlikely for cardiac ischemia as well as negative cardiac enzymes. If no contraindication, would continue aspirin therapy and statin therapy. Blood pressure has been on the lower end and given the setting of acute kidney injury, would hold any antihypertensives at the current time. Will check venous Dopplers. Consultation Date/Type/Reason Admit Date/Time 09/27/16 4891 Type of Consultation: cv Reason for Consultation Chest pain Hx of Present Illness This is a 56-year-old female with past medical history of hypertension, chronic pain syndrome, kidney disease who presents with multiple complaints. Patient states over the past 3-4 days, she has been having numbness in her bilateral arms more so on the left arm. 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 She developed symptoms of shooting pain up her left arm going to her shoulder and her neck and chest. The pain is sharp in nature. Pain is exacerbated by arm movements. Pain is worse with bending forward and bending back. Because of the worsening symptoms, she came to the emergency room for further evaluation and care. She has been having issues with pain going on for many months. She has been trying to see a pain specialist but unable. She complains of pain in her shoulders, arms, back. With exertion, she develops back pain which radiates to her chest and she feels short of breath. She also complains of lower extremity swelling where she takes a "water pill" for this reason. She also complains of pain in her left lower extremity over the past few months. She denies exertional chest pain except for what mentioned above. She denies any fevers or chills. 12 point review of systems was performed with all pertinent positives and negatives mentioned above and all else is negative Past Medical History Thyroid dysfunction Possible chronic pain syndrome Kidney dysfunction Medical History: hypertension Family History Significant Family History: no pertinent family hx Social History Alcohol Use: none Smoking Status: Never smoker Drug Use: none Exam/Review of Systems Vital Signs Vitals Vital Signs Date Time Temp Pulse Resp B/P Pulse Ox O2 Delivery O2 Flow Rate FiO2 09/28/16 10:00 99 15 107/75 100 Nasal Cannula 4.0 09/28/16 06:45 98.1 Exam Becomes emotional at times during history taking, no apparent distress Constitutional: alert, obese, oriented Head: normocephalic Neck: other (Pain with palpation of neck) Respiratory: other (Coarse breath sounds bilaterally, no wheezing) Cardiovascular: other (S1-S2 heard, no murmurs appreciated), regular rate and rhythm Gastrointestinal: bowel sounds, non-tender, other (No guarding), soft Musculoskeletal: other (Pain with palpation of bilateral arms, chest wall, neck ) Extremities: edema, other (No cyanosis) Results Result Diagram: 09/28/16 0438 09/28/16 0438 Results 24 hrs Laboratory Tests Test 09/27/16 22:07 09/28/16 04:00 09/28/16 04:38 09/28/16 06:41 White Blood Count 8.8 # 7.1 Red Blood Count 2.93 #L 2.84 L Hemoglobin 9.1 #L 8.3 L Hematocrit 28.8 #L 27.9 L Mean Corpuscular Volume 98.3 98.2 Mean Corpuscular Hemoglobin 31.1 29.2 Mean Corpuscular Hemoglobin Concent 31.6 L 29.7 L Red Cell Distribution Width 13.5 13.7 Platelet Count 239 235 Mean Platelet Volume 9.9 # 10.5 H Neutrophils % 65.5 67.8 Lymphocytes % 23.4 21.0 Monocytes % 9.1 9.0 Eosinophils % 1.6 1.8 Basophils % 0.2 0.1 Nucleated Red Blood Cells % 0.0 0.0 Neutrophils # 5.8 4.8 Lymphocytes # 2.1 1.5 Monocytes # 0.8 0.6 Eosinophils # 0.1 0.1 Basophils # 0.0 0.0 Nucleated Red Blood Cells # 0.0 0.0 Prothrombin Time 13.6 Prothrombin Time Ratio 1.1 INR International Normalized Ratio 1.04 Activated Partial Thromboplast Time 29.4 Sodium Level 141 140 Potassium Level 5.7 H 5.5 H Chloride Level 100 105 Carbon Dioxide Level 27 25 Anion Gap 20 H 16 Blood Urea Nitrogen 89 H 89 H Creatinine 3.76 H 3.35 H Glucose Level 122 141 Hemoglobin A1c 6.1 H Calcium Level 9.8 9.8 Magnesium Level 2.2 Troponin I < 0.012 < 0.012 Bedside Glucose 54 L 87 Creatine Kinase 50 Creatine Kinase Index 0.9 Creatinine Kinase MB (Mass) 0.46 Triglycerides Level 175 H Cholesterol Level 194 LDL Cholesterol, Calculated 117 HDL Cholesterol 42 Cholesterol/HDL Ratio 4.6 Thyroid Stimulating Hormone (TSH) 0.599 Test 09/28/16 10:41 09/28/16 12:36 Bedside Glucose 107 131 Medications Medications Current Medications Lorazepam (Ativan) 0.5 mg Q8H PRN PO ANXIETY; Start 09/28/16 at 00:00 Metoclopramide HCl (Reglan) 10 mg Q6H PRN IV NAUSEA AND/OR VOMITING Last administered on 09/28/16 01:59; Admin Dose 10 MG; Start 09/28/16 at 00:00 Nitroglycerin (Nitroglycerin (Sl Tab) 0.4 Mg) 1 tab Q5M PRN SL CHEST PAIN; Start 09/28/16 at 00:00 Acetaminophen (Tylenol Tab) 650 mg Q6H PRN PO PAIN LEVEL 1-3 OR FEVER; Start at 00:00 Morphine Sulfate (morphine) 4 mg Q4H PRN IV PAIN LEVEL 7-10 Last administered on 09/28/16 02:00; Admin Dose 4 MG; Start 09/28/16 at 00:00 Famotidine (Pepcid) 20 mg Q12 PO Last administered on 09/28/16 10:51; Admin Dose 20 MG; Start 09/28/16 at 09:00 Fenofibrate (Tricor) 48 mg DAILY PO Last administered on 09/28/16 10:51; Admin Dose 48 MG; Start 09/28/16 at 11:00 Furosemide (Lasix) 40 mg DAILY PO Last administered on 09/28/16 10:53; Admin Dose 40 MG; Start 09/28/16 at 11:00; Status Future Hold Gabapentin (Neurontin) 300 mg DAILY PO Last administered on 09/28/16 10:51; Admin Dose 300 MG; Start 09/28/16 at 11:00 Lisinopril (Zestril) 2.5 mg DAILY PO Last administered on 09/28/16 10:52; Admin Dose 2.5 MG; Start 09/28/16 at 11:00; Status Future Hold Montelukast Sodium (Singulair) 10 mg QHS PO ; Start 09/28/16 at 21:00 Quetiapine Fumarate (Seroquel) 200 mg HS PO ; Start 09/28/16 at 21:00 Sertraline HCl (Zoloft) 100 mg DAILY PO Last administered on 09/28/16 10:51; Admin Dose 100 MG; Start 09/28/16 at 11:00 Mometasone Furoate (Asmanex) 1 puff DAILY INH ; Start 09/29/16 at 09:00 Miscellaneous Information 1 ea NOTE XX ; Start 09/28/16 at 02:30 Glucose (Glutose) 15 gm Q15M PRN PO DECREASED GLUCOSE; Start 09/28/16 at 02:30 Glucose (Glutose) 22.5 gm Q15M PRN PO DECREASED GLUCOSE; Start 09/28/16 at 02: 30 Dextrose (D50w Syringe) 25 ml Q15M PRN IV DECREASED GLUCOSE Last administered on 09/28/16 04:03; Admin Dose 50 ML; Start 09/28/16 at 02:30 Dextrose (D50w Syringe) 50 ml Q15M PRN IV DECREASED GLUCOSE; Start 09/28/16 at 02:30 Glucagon (Glucagen) 1 mg Q15M PRN IM DECREASED GLUCOSE; Start 09/28/16 at 02:30 Glucose (Glutose) 15 gm Q15M PRN BUCCAL DECREASED GLUCOSE; Start 09/28/16 at 02 :30 Diagnostic Test (Pha) (Accu-Chek) 1 ea 02 XX ; Start 09/29/16 at 02:00 Procedures Procedures ECG demonstrates sinus rhythm, right bundle branch block, nonspecific STT wave abnormalities Aguilar Mays DO Sep 28, 2016 16:23
[2016-09-28 16:29] LABS: CK-MB 0.36 ng/ml (0.0-2.4)
[2016-09-28 16:36] LABS: TROPONIN-I < 0.012 ng/ml (0.00-0.12)
[2016-09-28] MEDS: PIOGLITAZONE 30 MG TAB PO SCH (17:00)
[2016-09-28] MEDS ORDERED: FUROSEMIDE 40 MG INJ IV ONE (17:00)
--- NOTE | 2016-09-28 17:28 | RADRPT ---
PROCEDURE: CT Brain without contrast. CLINICAL INDICATION: Left-sided weakness TECHNIQUE: A CT of the brain was performed on a [id number] 64-slice CT scanner utilizing axial imaging from the skull base through the vertex without IV contrast. Multiplanar reformatted images were made. Images were reviewed on a PACS workstation. The CTDIvol is 44.11 mGy and the DLP is 630 .20 mGycm. One of the following 3 dose reduction techniques were used: Automated exposure control; adjustment of the mA and/or kV according to patient size; or use of iterative reconstruction technique. COMPARISON: None available FINDINGS: There is no intracranial hemorrhage, mass effect, or midline shift. No extra-axial fluid collection is seen. The ventricles and sulci are normal in size and configuration. The density of the brain is normal, and the ortega white matter differentiation appears well-preserved. The visualized scalp and calvarium are normal. The bilateral orbits are normal. The bilateral para nasal sinuses, mastoid air cells and middle ear cavities are clear. IMPRESSION: 1. No evidence of acute intracranial hemorrhage, infarcts, or acute intracranial pathology. Recomme nd MRI with diffusion with persistent neurologic findings or CT angiography. 2. Normal noncontrast head CT. RPTAT: HD .Brandie Medina MD, MD Date Time Electronically viewed and signed by .Brandie Medina MD, on 09/28/2016 17:27 .C/
--- NOTE | 2016-09-28 17:37 | RADRPT ---
PROCEDURE: CT abdomen and pelvis without contrast. CLINICAL INDICATION: Bilateral flank pain and low back pain TECHNIQUE: CT scan of the abdomen and pelvis without contrast was performed on a multislice CT [facility] utilizing axial imaging from the lung bases through the pubis symphysis. The patient was scann ed without intravenous contrast. Sagittal and coronal reformatted images were made. The CTDIvol is 23.24 mGy and the DLP is 1472.62 mGycm. One of the following 3 dose reduction techniques were used during this CT examination: automated exp osure control; adjustment of the mA and /or kV according to patient size; or use of iterative recons truciton technique. COMPARISON: Abdominal ultrasound 09/28/[address] angiography dated 06/06/2015 FINDINGS: The lung bases are clear with mild left basilar scarring. The heart size is normal. No pericardial or pleural effusions are present. No evidence for pneumothorax is noted. The visualized liver is of normal size and attenuation. A peripheral calcified 4 cm region is noted in the anterior segment of the right lobe of the liver with an adjacent punctate calcification. Th is is likely secondary to sequela of prior infection or hematoma. The visualized spleen, fatty panc reas, gallbladder, and bilateral adrenal glands are normal. The imaged stomach is normal. The bila teral kidneys demonstrate no evidence for hydroureteronephrosis or nephroureterolithiasis. The bila teral ureters are normal. The visualized bowel straits an abundance of stool and correlate with constipation. No evidence for diverticulosis, diverticulitis, or appendicitis is present. The visualized aorta demonstrates mild vascular calcifications without evidence for aneurysmal dilat ation. The visualized pelvis is normal. A distended urinary bladder is noted. The patient appears to be s tatus post hysterectomy changes. No evidence for ascites, pneumoperitoneum, or masses are noted. The imaged osseous structures demonstrate degenerative changes the bilateral sacroiliac joints and d egenerative spondylosis of the spine. Degenerative endplate changes, see moderate to severe disk sp sarina height loss and vacuum disk phenomenon is noted at L2-3. IMPRESSION: 1. No evidence for hydroureter nephrosis or nephroureterolithiasis. 2. No evidence for acute intra abdominal or pelvic pathology. 3. 4 cm calcification in the right lobe of the liver as described above most compatible with sequel a of prior infection or trauma. 4. Degenerative spondylosis of the imaged spine with severe degenerative endplate and disk changes at L2-3. 5. Abundance of stool and correlate with constipation. RPTAT: HDC .Brandie Medina MD, MD Date Time Electronically viewed and signed by .Brandie Medina MD, on 09/28/2016 17:36 .C/
--- NOTE | 2016-09-28 17:40 | RADRPT ---
PROCEDURE: US DVT. CLINICAL INDICATION: Lower extremity swelling. Evaluate for deep venous thrombosis.. TECHNIQUE: Multiple longitudinal and transverse images of the bilateral lower extremity veins were obtained with ortega scale and color Doppler imaging. 2D grayscale measurements with compression, co lisa Doppler flow, and augmentation was performed. The calf veins were interrogated as well. COMPARISON: Previous study from 20:15. FINDINGS: The bilateral common femoral, superficial femoral and popliteal veins are normally compressible thro ughout. Color flow demonstrates normal filling of the vessel. Normal waveforms are visualized and there is normal response to augmentation. IMPRESSION: 1. No evidence of a deep vein thrombosis involving either lower extremity. RPTAT: [facility] Physician Stephen Date Time Electronically viewed and signed by Physician Stephen on 09/28/2016 17:40 /
[2016-09-28 18:00] VITALS: BP 143/77; PULSE 121; RESP 22
[2016-09-28 18:01] VITALS: PULSE 96
--- NOTE | 2016-09-28 18:22 | RADRPT ---
PROCEDURE: CT Cervical Spine. CLINICAL INDICATION: Left-sided weakness TECHNIQUE: A CT of the cervical spine was performed on a [employer] 64-slice CT scanner utilizing hi gh-resolution axial imaging from the skull base through the cervical thoracic junction. Sagittal, c oronal, and multiplanar reformatted images were made. CTDI 22.16 mGy and DLP 438.90 mGy-cm. One of the following 3 dose reduction techniques were used during this CT examination: automated exp osure control; adjustment of the mA and /or kV according to patient size; or use of iterative recons truciton technique COMPARISON: CT soft tissue neck 06/06/2015 and no prior CTs of the cervical spine. FINDINGS: There is straightening of the normal lordosis of the cervical spine. Degenerative 2 mm anterior subl uxation of C2 on C3 and C3-C4 is present. No evidence for acute fractures or traumatic subluxations are present. Preservation of vertebral body heights and intervertebral disk spaces are noted with the exception of mild disk space height loss at C5-6. The posterior elements are intact and normal ly aligned. The surrounding soft tissues are normal in appearance. The specific axial levels are as follows: Occiput to C2: The visualized posterior fossa is normal. The atlantoaxial degenerative changes are present. No central canal stenosis is noted. C2-3: A mild broad-based bulge is present which measures 3 mm. Mild bilateral uncovertebral osteop hytes and left greater than right facet arthropathy is present. AP canal dimension is 9.7 mm. This results in a mild central canal stenosis without subarticular recess stenosis. Mild left neural fo raminal stenosis is present with a patent right neural foramen. C3-4: A mild broad-based bulge is present. Mild bilateral uncovertebral osteophytes and right grea ter than left facet osteoarthropathy is present. The central canal, subarticular recess, are patent . Mild right neural foraminal stenosis and a patent left neural foramen is noted. C4-5: A mild annular bulge is present with bilateral uncovertebral osteophytes and facet arthropath y. The central canal, bilateral subarticular recesses are patent. Mild left neural foraminal steno sis and a patent right neural foramen is present. C5-6: Mild disk space height loss is present. A 3 mm central disk protrusion on a mild annular bulg e is present. Bilateral uncovertebral osteophyte and left facet osteoarthropathy is present. AP ca nal dimension is 9 mm. This results in a mild central, bilateral subarticular recess stenosis and m oderate left neural foraminal stenosis with a patent right neural foramen. Recommend correlation wi th a left C6 radiculopathy. C6-7: Artifact through this level is noted. However the appearance of a 6 mm large left subarticula r recess disk extrusion is suggested and recommend MRI to further evaluate. This results in an AP c anal dimension is 6 mm. This associated mild bilateral uncovertebral osteophytes are noted. The ab ove findings contribute to moderate central, left subarticular recess stenosis and no significant ne ural foraminal stenosis. C7-T1: The intervertebral discs is normal. Artifact obscures optimal evaluation of this level. Th e central canal, subarticular recesses are patent. Mild bilateral uncovertebral osteophytes and fac et arthropathy contributes to a mild left neural foraminal stenosis with patent right neural foramen . IMPRESSION: 1. No acute fractures or traumatic subluxations. 2. Degenerative anterior 2 mm subluxation of C2-3 and C3-4 3. 3 mm central disk protrusion at C5-6 with mild central canal stenosis. 4. Artifact obscuring possible 6 mm large left subarticular recess disk extrusion at C6-7 with mode rate stenosis. Recommend MRI to further evaluate. 5. Multilevel neural foraminal stenosis at C2-3 through C5-6 and C7-T1 levels with radiculopathy as indicated above. Moderate left neural foraminal stenosis at C5-6 and correlate with the left C6 ra diculopathy. 6. Multilevel bilateral uncovertebral and facet osteoarthropathy as noted. RPTAT: HDC .Brandie Medina MD, Date Time Electronically viewed and signed by .Brandie Medina MD, MD on 09/28/2016 18:22 .C/
[2016-09-28 18:54] VITALS: Ht 167.6 cm; Wt 100.0 kg
[2016-09-28 20:00] VITALS: BP 119/59; RESP 18
[2016-09-28 20:28] VITALS: PULSE 91
[2016-09-28] MEDS ORDERED: metFORMIN 500 MG TAB PO SCH (21:00)
[2016-09-28] MEDS: ASPIRIN (EC) 81 MG TAB PO SCH (21:50)
[2016-09-28] MEDS: ATORVASTATIN 20 MG TAB PO SCH (21:50)
[2016-09-28] MEDS: MONTELUKAST 10 MG TAB PO SCH (21:50)
[2016-09-28] MEDS: QUETIAPINE 100 MG TAB PO SCH (21:50)
[2016-09-29] VITALS (9 sets, daily range): BP systolic 81–132; BP diastolic 52–78; PULSE 77–95; RESP 17–22
[2016-09-29] MEDS: ACCUCHECK AT 2AM (Patients on SS coverage) XX SCH (02:00)
[2016-09-29 07:35] LABS: ADD SCAN DIFF NO
[2016-09-29 07:42] LABS: BASOPHILS % 0.4 % (0.0-2.0); EOSINOPHILS # 0.1 10^3/ul (0.0-0.5); EOSINOPHILS % 2.4 % (0.0-7.0); HEMATOCRIT 27.3 % (37.0-47.0); HEMOGLOBIN 8.1 g/dl (12.0-16.0); LYMPHOCYTES # 1.4 10^3/ul (0.8-2.9); LYMPHOCYTES % 27.4 % (15.0-51.0); MEAN CORPUSCULAR HEMOGLOBIN 29.7 pg (29.0-33.0); MEAN CORPUSCULAR HGB CONC 29.7 g/dl (32.0-37.0); MEAN PLATELET VOLUME 10.9 fl (7.4-10.4); MONOCYTE # 0.5 10^3/ul (0.3-0.9); MONOCYTES % 9.1 % (0.0-11.0); NEUTROPHILS % 60.3 % (39.0-77.0); PLATELET COUNT 221 10^3/UL (140-415); RED BLOOD COUNT 2.73 10^6/ul (4.20-5.40); RED CELL DISTRIBUTION WIDTH 13.7 % (11.5-14.5)
[2016-09-29] MEDS: INSULIN ASPART [NOVOLOG] 3 ML PEN SC SCH ×4 (08:00→21:00)
[2016-09-29 08:12] LABS: POTASSIUM 4.6 mmol/L (3.5-5.1)
[2016-09-29 08:15] LABS: CREATININE 3.19 mg/dl (0.44-1.00); PHOSPHORUS 7.4 mg/dl (2.5-4.9)
[2016-09-29 08:16] LABS: CALCIUM 9.3 mg/dl (8.4-10.2); MAGNESIUM 1.9 mg/dl (1.7-2.5)
[2016-09-29] MEDS: ASPIRIN (EC) 81 MG TAB PO SCH (08:39)
[2016-09-29] MEDS: GABAPENTIN 300 MG CAP PO SCH (08:39)
[2016-09-29] MEDS: SERTRALINE 100 MG TAB PO SCH (08:39)
[2016-09-29] MEDS: FAMOTIDINE 20 MG TAB PO SCH ×2 (08:39→21:10)
[2016-09-29] MEDS: FENOFIBRATE 48 MG TAB PO SCH (08:40)
--- NOTE | 2016-09-29 11:14 | PN ---
Date/Time of Note Date/Time of Note DATE: 09/29/16 TIME: 11:12 Assessment/Plan VTE Prophylaxis VTE Prophylaxis Intervention: SCD's Lines/Catheters IV [facility] Saline [facility] Urinary Cath still in place: No Assessment/Plan Assessment/Plan Chest, arm, back and neck pain Preserved ejection fraction Acute kidney injury Preserved ejection fraction Hypertension Psychiatric disorder Possible chronic pain syndrome atypical symptoms unlikely for cardiac ischemia as well as negative cardiac enzymes. continue aspirin therapy and statin therapy. Blood pressure has been on the lower end and given the setting of acute kidney injury, would hold any antihypertensives at the current time. renal service is involved Subjective 24 Hr Interval Summary Free Text/Dictation the patient wth no chest pain Exam/Review of Systems Vital Signs Vitals Vital Signs Date Time Temp Pulse Resp B/P Pulse Ox O2 Delivery O2 Flow Rate FiO2 09/29/16 08:11 79 09/29/16 08:00 Nasal Cannula 2.0 09/29/16 07:55 97.9 17 102/61 93 Intake and Output 09/28/16 09/28/16 09/29/16 14:59 22:59 06:59 Intake Total 250 ml Balance 250 ml Results Result Diagram: 09/29/16 0600 09/29/16 0600 Results 24 hrs Laboratory Tests Test 09/28/16 12:36 09/28/16 15:45 09/28/16 18:15 09/28/16 22:55 Bedside Glucose 131 149 196 Sodium Level 141 Potassium Level 4.7 Chloride Level 102 Carbon Dioxide Level 26 Anion Gap 18 H Blood Urea Nitrogen 80 H Creatinine 2.67 H Glucose Level 173 Calcium Level 9.6 Creatine Kinase 53 Creatine Kinase Index 0.7 Creatinine Kinase MB (Mass) 0.36 Troponin I < 0.012 Test 09/29/16 06:00 09/29/16 08:44 White Blood Count 5.0 # Red Blood Count 2.73 L Hemoglobin 8.1 L Hematocrit 27.3 L Mean Corpuscular Volume 100.0 Mean Corpuscular Hemoglobin 29.7 Mean Corpuscular Hemoglobin Concent 29.7 L Red Cell Distribution Width 13.7 Platelet Count 221 Mean Platelet Volume 10.9 H Neutrophils % 60.3 Lymphocytes % 27.4 Monocytes % 9.1 Eosinophils % 2.4 Basophils % 0.4 Nucleated Red Blood Cells % 0.0 Neutrophils # 3.0 Lymphocytes # 1.4 Monocytes # 0.5 Eosinophils # 0.1 Basophils # 0.0 Nucleated Red Blood Cells # 0.0 Sodium Level 141 Potassium Level 4.6 Chloride Level 102 Carbon Dioxide Level 26 Anion Gap 18 H Blood Urea Nitrogen 84 H Creatinine 3.19 H Glucose Level 107 # Calcium Level 9.3 Phosphorus Level 7.4 H Magnesium Level 1.9 Bedside Glucose 127 Medications Medications Current Medications Lorazepam (Ativan) 0.5 mg Q8H PRN PO ANXIETY; Start 09/28/16 at 00:00 Metoclopramide HCl (Reglan) 10 mg Q6H PRN IV NAUSEA AND/OR VOMITING Last administered on 09/28/16 01:59; Admin Dose 10 MG; Start 09/28/16 at 00:00 Nitroglycerin (Nitroglycerin (Sl Tab) 0.4 Mg) 1 tab Q5M PRN SL CHEST PAIN; Start 09/28/16 at 00:00 Acetaminophen (Tylenol Tab) 650 mg Q6H PRN PO PAIN LEVEL 1-3 OR FEVER; Start at 00:00 Morphine Sulfate (morphine) 4 mg Q4H PRN IV PAIN LEVEL 7-10 Last administered on 09/28/16 02:00; Admin Dose 4 MG; Start 09/28/16 at 00:00 Famotidine (Pepcid) 20 mg Q12 PO Last administered on 09/29/16 08:39; Admin Dose 20 MG; Start 09/28/16 at 09:00 Fenofibrate (Tricor) 48 mg DAILY PO Last administered on 09/29/16 08:40; Admin Dose 48 MG; Start 09/28/16 at 11:00 Gabapentin (Neurontin) 300 mg DAILY PO Last administered on 09/29/16 08:39; Admin Dose 300 MG; Start 09/28/16 at 11:00 Montelukast Sodium (Singulair) 10 mg QHS PO Last administered on 09/28/16 21: 50; Admin Dose 10 MG; Start 09/28/16 at 21:00 Quetiapine Fumarate (Seroquel) 200 mg HS PO Last administered on 09/28/16 21: 50; Admin Dose 200 MG; Start 09/28/16 at 21:00 Sertraline HCl (Zoloft) 100 mg DAILY PO Last administered on 09/29/16 08:39; Admin Dose 100 MG; Start 09/28/16 at 11:00 Mometasone Furoate (Asmanex) 1 puff DAILY INH ; Start 09/29/16 at 09:00 Miscellaneous Information 1 ea NOTE XX ; Start 09/28/16 at 02:30 Glucose (Glutose) 15 gm Q15M PRN PO DECREASED GLUCOSE; Start 09/28/16 at 02:30 Glucose (Glutose) 22.5 gm Q15M PRN PO DECREASED GLUCOSE; Start 09/28/16 at 02: 30 Dextrose (D50w Syringe) 25 ml Q15M PRN IV DECREASED GLUCOSE Last administered on 09/28/16 04:03; Admin Dose 50 ML; Start 09/28/16 at 02:30 Dextrose (D50w Syringe) 50 ml Q15M PRN IV DECREASED GLUCOSE; Start 09/28/16 at 02:30 Glucagon (Glucagen) 1 mg Q15M PRN IM DECREASED GLUCOSE; Start 09/28/16 at 02:30 Glucose (Glutose) 15 gm Q15M PRN BUCCAL DECREASED GLUCOSE; Start 09/28/16 at 02 :30 Diagnostic Test (Pha) (Accu-Chek) 1 ea 02 XX ; Start 09/29/16 at 02:00 Pioglitazone HCl (Actos) 30 mg DAILY PO ; Start 09/28/16 at 17:00 Aspirin (Halfprin) 81 mg DAILY PO Last administered on 09/29/16 08:39; Admin Dose 81 MG; Start 09/28/16 at 17:00 Atorvastatin Calcium (Lipitor) 20 mg HS PO Last administered on 09/28/16 21:50 ; Admin Dose 20 MG; Start 09/28/16 at 21:00 GOPAL ROCHA MD Sep 29, 2016 11:14
[2016-09-29] MEDS: PIOGLITAZONE 30 MG TAB PO SCH (11:38)
--- NOTE | 2016-09-29 11:57 | PN ---
DATE: 09/29/2016 SUBJECTIVE: The patient continues to have some generalized pain, denies any fevers, chills, any leonie sea, vomiting. Denies any loss of appetite. The patient's urinary output has been adequate. No ot her events noted. OBJECTIVE: VITAL SIGNS: Blood pressure 102/61, respirations 17, pulse 85, temperature 97.9. I's and O's: The patient I's and O's have not been adequately recorded. HEENT: Head is normocephalic. NECK: Supple. HEART: Regular rate. LUNGS: Show diminished breath sounds at the base. ABDOMEN: Soft, nontender to palpation. No rebound or guarding. EXTREMITIES: Negative for clubbing, cyanosis, no edema. Trace edema. DERMATOLOGIC: No rashes. MUSCULOSKELETAL: No joint effusions. NEUROLOGIC: No change in exam. MEDICATIONS: Reviewed. LABORATORY DATA: Showed sodium 141, potassium 4.6, chloride 102, BUN is 84, creatinine 3.19, phosph orus 7.4. White count 5.0, hemoglobin ____, hematocrit 27.3, platelet count 221. The patient's 2D echo shows preserved ejection fraction and diastolic dysfunction stage I. IMAGING: Abdominal CT and cervical spine CT reviewed. ASSESSMENT AND PLAN: 1. Nonoliguric acute kidney injury, with possible chronic kidney disease with previous baseline cre atinine of 1 mg/dL in 2014. Etiology of current acute kidney injury is likely multifactorial due to diuretic therapy, NSAID use, TONYA inhibitor effect. The possibility of acute tubular necrosis is al so a consideration. The patient's renal ultrasound shows no evidence of obstruction and otherwise n o evidence of echogenicity. The patient's urinalysis, urine electrolytes are currently pending. Pl an at this point would be to continue supportive care. Would discontinue diuretic therapy as patien t's 2D echo shows preserved ejection fraction. The patient's chest x-ray shows pulmonary congestion , but no overt evidence of failure. Would also hold any TONYA inhibitor, ARB or NSAID use. Would con tinue to monitor renal function closely, monitor strict I's and O's. Otherwise, continue current tr eatment plan, avoid nephrotoxins. 2. Mineral bone disorder. The patient is hypophosphatemic secondary to acute kidney injury. We wi ll continue to monitor phosphorus levels closely. Will start phosphate binders. 3. Anemia, likely of chronic disease. Monitor hemoglobin and hematocrit levels. 4. Hyperkalemia, resolved. Continue to monitor. Continue renal diet. 5. Chest pain. Etiology may have been musculoskeletal due to underlying radiculopathy. The patien t's CT scan of the neck shows evidence of spinal stenosis. Will continue to monitor. The patient's cardiac enzymes have been negative. Will follow up with our cardiology colleagues for further rosa mmendations. 6. Diabetes. Continue current insulin regimen. 7. History of hypertension. The patient is currently normotensive. Continue to monitor. 8. Dyslipidemia. Continue statin therapy. 9. History of obesity. Continue dietary modification. 10. Depression. Continue Zoloft. 11. History of asthma. Dictated By: EDMOND PEARCE/NAHUM Conf#: [id number] DID#: [id number]
[2016-09-29] MEDS: MOMETASONE 0.24 GM INHALER INH SCH (12:29)
--- NOTE | 2016-09-29 14:50 | RADRPT ---
Vent Rate: 82 bpm RR Interval: 0 msec [place] Interval: 154 msec QRS Duration: 150 msec QT Interval: 394 msec QTC Interval: 460 msec P-R-T [place]: 54 - 50 - 28 degrees Normal sinus rhythm Right bundle branch block Abnormal ECG No previous tracing available for comparison Electronically Signed By: Larry Morgan [id number]
[2016-09-29 15:35] LABS: ADD UMIC YES; URINE BILIRUBIN (Dip) NEGATIVE (NEGATIVE); URINE BLOOD (Dip) NEGATIVE (NEGATIVE); URINE COLOR LT. YELLOW (YELLOW); URINE GLUCOSE (Dip) NEGATIVE (NEGATIVE); URINE KETONES (Dip) NEGATIVE (NEGATIVE); URINE LEUKOCYTE ESTERASE (Dip) TRACE (NEGATIVE); URINE NITRITE (Dip) NEGATIVE (NEGATIVE); URINE TOTAL PROTEIN (Dip) NEGATIVE (NEGATIVE); URINE UROBILINOGEN (Dip) 0.2 E.U./dL (0.1-1.0)
[2016-09-29 15:45] LABS: URINE RBCS NONE SEEN /HPF (0)
[2016-09-29] MEDS: QUETIAPINE 100 MG TAB PO SCH (21:10)
[2016-09-29] MEDS: ATORVASTATIN 20 MG TAB PO SCH (21:10)
[2016-09-29] MEDS: MONTELUKAST 10 MG TAB PO SCH (21:10)
[2016-09-30] MEDS: ACCUCHECK AT 2AM (Patients on SS coverage) XX SCH (02:00)
[2016-09-30 05:24] VITALS: BP 112/65; PULSE 74; RESP 20
[2016-09-30 07:53] LABS: ADD SCAN DIFF NO
[2016-09-30 07:54] LABS: BASOPHILS % 0.3 % (0.0-2.0); EOSINOPHILS # 0.1 10^3/ul (0.0-0.5); EOSINOPHILS % 2.1 % (0.0-7.0); HEMATOCRIT 26.6 % (37.0-47.0); HEMOGLOBIN 8.5 g/dl (12.0-16.0); LYMPHOCYTES # 2.1 10^3/ul (0.8-2.9); LYMPHOCYTES % 35.9 % (15.0-51.0); MEAN CORPUSCULAR HEMOGLOBIN 30.7 pg (29.0-33.0); MEAN PLATELET VOLUME 10.9 fl (7.4-10.4); MONOCYTE # 0.5 10^3/ul (0.3-0.9); MONOCYTES % 8.8 % (0.0-11.0); NEUTROPHILS % 52.6 % (39.0-77.0); PLATELET COUNT 256 10^3/UL (140-415); RED BLOOD COUNT 2.77 10^6/ul (4.20-5.40); RED CELL DISTRIBUTION WIDTH 13.4 % (11.5-14.5); WHITE BLOOD COUNT 5.8 10^3/ul (4.8-10.8)
[2016-09-30 08:10] LABS: POTASSIUM 3.9 mmol/L (3.5-5.1)
[2016-09-30 08:13] LABS: CREATININE 2.66 mg/dl (0.44-1.00)
[2016-09-30 08:14] LABS: CALCIUM 9.3 mg/dl (8.4-10.2); PHOSPHORUS 5.6 mg/dl (2.5-4.9)
[2016-09-30 08:15] VITALS: BP 125/63; RESP 18
[2016-09-30] MEDS: INSULIN ASPART [NOVOLOG] 3 ML PEN SC SCH ×4 (08:15→20:59)
[2016-09-30] MEDS: FAMOTIDINE 20 MG TAB PO SCH ×2 (09:25→20:59)
[2016-09-30] MEDS: GABAPENTIN 300 MG CAP PO SCH (09:25)
[2016-09-30] MEDS: SERTRALINE 100 MG TAB PO SCH (09:25)
[2016-09-30] MEDS: ASPIRIN (EC) 81 MG TAB PO SCH (09:25)
[2016-09-30] MEDS: ACETAMINOPHEN 325 MG TAB PO PRN (09:30)
[2016-09-30] MEDS: MOMETASONE 0.24 GM INHALER INH SCH (09:30)
[2016-09-30] MEDS: FENOFIBRATE 48 MG TAB PO SCH (09:31)
[2016-09-30] MEDS: PIOGLITAZONE 30 MG TAB PO SCH (09:32)
--- NOTE | 2016-09-30 11:20 | PN ---
DATE: 09/30/2016 SUBJECTIVE: The patient is stable. No acute events overnight. No fevers, chills, nausea, or vomit ing. OBJECTIVE: VITAL SIGNS: Blood pressure 125/60, respiration 18, pulse 70, temperature 98.4. HEENT: Head is normocephalic. NECK: Supple. HEART: Regular rate. LUNGS: Show diminished breath sounds at base. ABDOMEN: Soft, nontender to palpation without rebound or guarding. EXTREMITIES: Negative for clubbing, cyanosis, edema. DERMATOLOGIC: No rashes. MUSCULOSKELETAL: No joint effusions. NEUROLOGIC: No change in exam. MEDICATIONS: Reviewed. LABORATORY DATA: Showed sodium 141, potassium 3.9, chloride 100, BUN 87, creatinine 2.66, phosphoru s 5.7. White count is 5.8, hemoglobin 8.5, hematocrit 26.6, platelet count 256. ASSESSMENT AND PLAN: 1. Nonoliguric acute kidney injury on top of possible chronic kidney disease with previous baseline creatinine around 1.0 mg/dL in 2014. Etiology of acute kidney injury is likely multifactorial seco ndary to diuretic use, NSAID use, TONYA inhibitor effect. The patient's renal function has been impro ving with supportive care, holding blood pressure medications and diuretics. At this point, continu e current treatment plan, supportive care, renally dose all meds. 2. Mineral bone disorder. Continue to monitor calcium and phosphorus levels. 3. Anemia of chronic disease. Continue to monitor hemoglobin and hematocrit levels. 4. Hyperkalemia, resolved. 5. Chest pain. Etiology may be musculoskeletal. Cardiology is following. We will continue to mon itor. 6. Diabetes. Continue Accu-Cheks and sliding scale. 6. Hypertension. The patient is currently normotensive. Would hold blood pressure medications. 7. Dyslipidemia. Continue statin therapy. 8. Obesity. Continue dietary modification. 9. Depression. Continue Zoloft. 10. History of ____. Dictated By: EDMOND PEARCE/NAHUM Conf#: [id number] DID#: [id number]
[2016-09-30 12:45] VITALS: BP 128/60; PULSE 78; RESP 18
--- NOTE | 2016-09-30 14:23 | PN ---
Date/Time of Note Date/Time of Note DATE: 09/30/16 TIME: 14:18 Assessment/Plan VTE Prophylaxis VTE Prophylaxis Intervention: SCD's Lines/Catheters IV Catheter Type (from Nrs): [facility] Urinary Cath still in place: No Assessment/Plan Assessment/Plan 56-year-old female who presents with: 1. Chest pain likely MAGI. 2. Acute kidney injury, with possible chronic kidney disease Etiology is multifactorial secondary to acute kidney injury, TONYA inhibitor effect, and NSAID use. 3. LUE paresis and paresthesias : May be associated with #1 or separate pathology 4. Severe disabling carlos Low back pain 5 . Hyperkalemia 2/2 #2: resolved 6. Diabetes Type 2: good control 7. Hypertension : well controlled 8. Dyslipidemia. 9. Morbid obesity BMI 35 10. Chronic Depression. 11. History of asthma. 12. Cervical and lumbar spine radiculopathy Plan: * CT imaging concerning for radiculopathy and reviewed with Dr Herrera who recommended MRIs which are still pending. he wants to be called with MRI findings please. * continue all other measures / appreciate all other consults. * Calorie controlled diet / SSI / home meds * PRN pain control/ antiemetics/ antipyretics/ supportive care * Further interventions per clinical course * Prophylaxis SCDS/ Pepcid Subjective 24 Hr Interval Summary Free Text/Dictation patient stable Exam/Review of Systems Vital Signs Vitals Vital Signs Date Time Temp Pulse Resp B/P Pulse Ox O2 Delivery O2 Flow Rate FiO2 09/30/16 08:15 98.4 90 18 125/63 96 09/30/16 05:24 Room Air 09/29/16 19:54 2.0 Intake and Output 09/29/16 09/29/16 09/30/16 15:00 23:00 07:00 Intake Total 1280 ml 420 ml Output Total 100 ml 650 ml Balance 1180 ml -230 ml Exam Constitutional: alert, obese, No distress Psych: other (blank affect, poor speech direction) Head: atraumatic, normocephalic Eyes: PERRL, No icteric ENMT: mucosa pink and moist Neck: non-tender, supple, No jvd, No thyromegaly Respiratory: clear to auscultation, diminished breath sounds Cardiovascular: regular rate and rhythm, No murmurs/extra sounds Gastrointestinal: bowel sounds, distended (obese), non-tender, soft Extremities: edema (mild, non pitting versus obese) Neurological: nl mental status, nl speech, No confused, No focal weakness Skin: No rash or lesions Results Result Diagram: 09/30/1662409/30/16 0625 Results 24 hrs Laboratory Tests Test 09/29/16 17:26 09/29/16 21:09 09/30/16 06:25 09/30/16 08:02 Bedside Glucose 145 157 127 White Blood Count 5.8 Red Blood Count 2.77 L Hemoglobin 8.5 L Hematocrit 26.6 L Mean Corpuscular Volume 96.0 Mean Corpuscular Hemoglobin 30.7 Mean Corpuscular Hemoglobin Concent 32.0 Red Cell Distribution Width 13.4 Platelet Count 256 Mean Platelet Volume 10.9 H Neutrophils % 52.6 Lymphocytes % 35.9 Monocytes % 8.8 Eosinophils % 2.1 Basophils % 0.3 Nucleated Red Blood Cells % 0.0 Neutrophils # 3.0 Lymphocytes # 2.1 Monocytes # 0.5 Eosinophils # 0.1 Basophils # 0.0 Nucleated Red Blood Cells # 0.0 Sodium Level 141 Potassium Level 3.9 Chloride Level 100 Carbon Dioxide Level 27 Anion Gap 18 H Blood Urea Nitrogen 87 H Creatinine 2.66 H Glucose Level 117 Calcium Level 9.3 Phosphorus Level 5.6 H Magnesium Level 2.0 Test 09/30/16 11:57 Bedside Glucose 145 Medications Medications Current Medications Lorazepam (Ativan) 0.5 mg Q8H PRN PO ANXIETY; Start 09/28/16 at 00:00 Metoclopramide HCl (Reglan) 10 mg Q6H PRN IV NAUSEA AND/OR VOMITING Last administered on 09/28/16 01:59; Admin Dose 10 MG; Start 09/28/16 at 00:00 Nitroglycerin (Nitroglycerin (Sl Tab) 0.4 Mg) 1 tab Q5M PRN SL CHEST PAIN; Start 09/28/16 at 00:00 Acetaminophen (Tylenol Tab) 650 mg Q6H PRN PO PAIN LEVEL 1-3 OR FEVER Last administered on 09/30/16 09:30; Admin Dose 650 MG; Start 09/28/16 at 00:00 Morphine Sulfate (morphine) 4 mg Q4H PRN IV PAIN LEVEL 7-10 Last administered on 09/28/16 02:00; Admin Dose 4 MG; Start 09/28/16 at 00:00 Famotidine (Pepcid) 20 mg Q12 PO Last administered on 09/30/16 09:25; Admin Dose 20 MG; Start 09/28/16 at 09:00 Fenofibrate (Tricor) 48 mg DAILY PO Last administered on 09/30/16 09:31; Admin Dose 48 MG; Start 09/28/16 at 11:00 Gabapentin (Neurontin) 300 mg DAILY PO Last administered on 09/30/16 09:25; Admin Dose 300 MG; Start 09/28/16 at 11:00 Montelukast Sodium (Singulair) 10 mg QHS PO Last administered on 09/29/16 21: 10; Admin Dose 10 MG; Start 09/28/16 at 21:00 Quetiapine Fumarate (Seroquel) 200 mg HS PO Last administered on 09/29/16 21: 10; Admin Dose 200 MG; Start 09/28/16 at 21:00 Sertraline HCl (Zoloft) 100 mg DAILY PO Last administered on 09/30/16 09:25; Admin Dose 100 MG; Start 09/28/16 at 11:00 Mometasone Furoate (Asmanex) 1 puff DAILY INH Last administered on 09/30/16 09 :30; Admin Dose 1 PUFF; Start 09/29/16 at 09:00 Miscellaneous Information 1 ea NOTE XX ; Start 09/28/16 at 02:30 Glucose (Glutose) 15 gm Q15M PRN PO DECREASED GLUCOSE; Start 09/28/16 at 02:30 Glucose (Glutose) 22.5 gm Q15M PRN PO DECREASED GLUCOSE; Start 09/28/16 at 02: 30 Dextrose (D50w Syringe) 25 ml Q15M PRN IV DECREASED GLUCOSE Last administered on 09/28/16 04:03; Admin Dose 50 ML; Start 09/28/16 at 02:30 Dextrose (D50w Syringe) 50 ml Q15M PRN IV DECREASED GLUCOSE; Start 09/28/16 at 02:30 Glucagon (Glucagen) 1 mg Q15M PRN IM DECREASED GLUCOSE; Start 09/28/16 at 02:30 Glucose (Glutose) 15 gm Q15M PRN BUCCAL DECREASED GLUCOSE; Start 4/21/17 at 02 :30 Diagnostic Test (Pha) (Accu-Chek) 1 XX ; Start 09/29/16 at 02:00 Pioglitazone HCl (Actos) 30 mg DAILY PO Last administered on 09/30/16 09:32; Admin Dose 30 MG; Start 09/28/16 at 17:00 Aspirin (Halfprin) 81 mg DAILY PO Last administered on 09/30/16 09:25; Admin Dose 81 MG; Start 09/28/16 at 17:00 Atorvastatin Calcium (Lipitor) 20 mg HS PO Last administered on 09/29/16 21:10 ; Admin Dose 20 MG; Start 09/28/16 at 21:00 OMA GATES Sep 30, 2016 14:23
--- NOTE | 2016-09-30 16:40 | RADRPT ---
PROCEDURE: MRI OF THE CERVICAL SPINE. CLINICAL INDICATION: Cervical stenosis with radiculopathy. TECHNIQUE: Multiple MRI images were obtained utilizing multiple sequences in the sagittal, axial an d coronal planes. Images were interpreted on a high-resolution PACS system. COMPARISON: None. FINDINGS: Vertebral body alignment is within normal limits. There is small anterior osteophytes at C5-6 indica tive of spondylosis. There is mild modic type 2 change at the C7-T1 level. No evidence for vertebr al body compression fracture. No evidence for pars fracture. The cervical spinal cord appears essie l. The craniocervical junction appears normal. Findings at specific disc levels: C2-3: Disc height and hydration is preserved. No evidence for central or foraminal stenosis. The re are moderate degenerative changes of the left facet joint and C2-3 seen on axial image #8 and the re is mild left foraminal narrowing. The right foramen is patent. There is mild ligamentum flavum prominence. C3-4: Disc height is preserved and hydration is minimally decreased. There is no evidence for bulg e or focal herniation. There are moderate degenerative changes of the facets and is mild uncinate s purring on the left side. There is mild left foraminal stenosis. AP diameter of the central spinal canal at midline: 13 mm. C4-5: Disc height is preserved and hydration is minimally decreased. There is no evidence for bulg e or focal herniation. There are moderate degenerative changes of the facets and is mild uncinate s purring on the left side. There is moderate left and mild right foraminal stenosis. AP diameter of the central spinal canal at midline: 13 mm. C5-6: Disc height and hydration is minimally decreased. There is a 2 mm bulge. There are moderate degenerative changes of the left facet joint and there is mild uncinate spurring on the left. There is mild left foraminal stenosis. AP diameter of the central spinal canal at midline: 12 mm. C6-7: Disc height is preserved and hydration is minimally decreased. There is no evidence for bulg e or focal herniation. The facets appear normal. No evidence for foraminal stenosis. AP diameter of the central spinal canal at midline: 13.3 mm. C7-T1: Disc height and hydration is preserved. No evidence for central stenosis. The facets appear normal. No evidence for foraminal stenosis. IMPRESSION: 1. Predominant left-sided facet degenerative change and mild uncinate spurring leads to moderate le ft-sided foraminal narrowing at C4-5 and mild left foraminal narrowing at C2-3, C3-4 and C5-6. 2. No evidence for central stenosis. 3. Normal cervical spinal cord. RPTAT: XX .Reuben Sanchez MD, MD Date Time Electronically viewed and signed by .Reuben Sanchez MD, on 09/30/2016 16:40 .T/
--- NOTE | 2016-09-30 17:30 | CONS ---
Date/Time of Note Date/Time of Note DATE: 09/30/16 TIME: 17:28 Assessment/Plan Assessment/Plan Additional Assessment/Plan Back, neck and arm pain Preserved ejection fraction Acute kidney injury Preserved ejection fraction Hypertension Psychiatric disorder Possible spinal stenosis -Patient denies chest pain, serial cardiac enzymes have remained negative, ECG without any significant abnormalities as mentioned previously an echocardiogram within normal limits. Undergoing evaluation for spinal stenosis. No further inpatient cardiac workup needed at the current time. Consultation Date/Type/Reason Admit Date/Time Sep 27, 2016 at 23:43 Initial Consult Date Type of Consultation: cv 24 HR Interval Summary Free Text/Dictation Patient denies any chest pain, main complaint now is back pain, denies shortness of breath Exam/Review of Systems Vital Signs Vitals Vital Signs Date Time Temp Pulse Resp B/P Pulse Ox O2 Delivery O2 Flow Rate FiO2 09/30/16 08:15 98.4 90 18 125/63 96 09/30/16 05:24 Room Air 09/29/16 19:54 2.0 Intake and Output 09/29/16 09/29/16 09/30/16 15:00 23:00 07:00 Intake Total 1280 ml 420 ml Output Total 100 ml 650 ml Balance 1180 ml -230 ml Exam No apparent distress, sitting in chair, speaking on the phone, Constitutional: alert, obese, oriented Head: normocephalic Respiratory: clear to auscultation, normal air movement Cardiovascular: other (S1-S2 heard), regular rate and rhythm Gastrointestinal: bowel sounds, non-tender, soft Extremities: edema Results Result Diagram: 09/30/16 0625 09/30/16 0625 Results 24 hrs Laboratory Tests Test 09/29/16 21:09 09/30/16 06:25 09/30/16 08:02 09/30/16 11:57 Bedside Glucose 157 127 145 White Blood Count 5.8 Red Blood Count 2.77 L Hemoglobin 8.5 L Hematocrit 26.6 L Mean Corpuscular Volume 96.0 Mean Corpuscular Hemoglobin 30.7 Mean Corpuscular Hemoglobin Concent 32.0 Red Cell Distribution Width 13.4 Platelet Count 256 Mean Platelet Volume 10.9 H Neutrophils % 52.6 Lymphocytes % 35.9 Monocytes % 8.8 Eosinophils % 2.1 Basophils % 0.3 Nucleated Red Blood Cells % 0.0 Neutrophils # 3.0 Lymphocytes # 2.1 Monocytes # 0.5 Eosinophils # 0.1 Basophils # 0.0 Nucleated Red Blood Cells # 0.0 Sodium Level 141 Potassium Level 3.9 Chloride Level 100 Carbon Dioxide Level 27 Anion Gap 18 H Blood Urea Nitrogen 87 H Creatinine 2.66 H Glucose Level 117 Calcium Level 9.3 Phosphorus Level 5.6 H Magnesium Level 2.0 Medications Medications Current Medications Lorazepam (Ativan) 0.5 mg Q8H PRN PO ANXIETY; Start 09/28/16 at 00:00 Metoclopramide HCl (Reglan) 10 mg Q6H PRN IV NAUSEA AND/OR VOMITING Last administered on 09/28/16 01:59; Admin Dose 10 MG; Start 09/28/16 at 00:00 Nitroglycerin (Nitroglycerin (Sl Tab) 0.4 Mg) 1 tab Q5M PRN SL CHEST PAIN; Start 09/28/16 at 00:00 Acetaminophen (Tylenol Tab) 650 mg Q6H PRN PO PAIN LEVEL 1-3 OR FEVER Last administered on 09/30/16 09:30; Admin Dose 650 MG; Start 09/28/16 at 00:00 Morphine Sulfate (morphine) 4 mg Q4H PRN IV PAIN LEVEL 7-10 Last administered on 09/28/16 02:00; Admin Dose 4 MG; Start 09/28/16 at 00:00 Famotidine (Pepcid) 20 mg Q12 PO Last administered on 09/30/16 09:25; Admin Dose 20 MG; Start 09/28/16 at 09:00 Fenofibrate (Tricor) 48 mg DAILY PO Last administered on 09/30/16 09:31; Admin Dose 48 MG; Start 09/28/16 at 11:00 Gabapentin (Neurontin) 300 mg DAILY PO Last administered on 09/30/16 09:25; Admin Dose 300 MG; Start 09/28/16 at 11:00 Montelukast Sodium (Singulair) 10 mg QHS PO Last administered on 09/29/16 21: 10; Admin Dose 10 MG; Start 09/28/16 at 21:00 Quetiapine Fumarate (Seroquel) 200 mg HS PO Last administered on 09/29/16 21: 10; Admin Dose 200 MG; Start 09/28/16 at 21:00 Sertraline HCl (Zoloft) 100 mg DAILY PO Last administered on 09/30/16 09:25; Admin Dose 100 MG; Start 09/28/16 at 11:00 Mometasone Furoate (Asmanex) 1 puff DAILY INH Last administered on 09/30/16 09 :30; Admin Dose 1 PUFF; Start 09/29/16 at 09:00 Miscellaneous Information 1 ea NOTE XX ; Start 09/28/16 at 02:30 Glucose (Glutose) 15 gm Q15M PRN PO DECREASED GLUCOSE; Start 09/28/16 at 02:30 Glucose (Glutose) 22.5 gm Q15M PRN PO DECREASED GLUCOSE; Start 09/28/16 at 02: 30 Dextrose (D50w Syringe) 25 ml Q15M PRN IV DECREASED GLUCOSE Last administered on 09/28/16 04:03; Admin Dose 50 ML; Start 09/28/16 at 02:30 Dextrose (D50w Syringe) 50 ml Q15M PRN IV DECREASED GLUCOSE; Start 09/28/16 at 02:30 Glucagon (Glucagen) 1 mg Q15M PRN IM DECREASED GLUCOSE; Start 09/28/16 at 02:30 Glucose (Glutose) 15 gm Q15M PRN BUCCAL DECREASED GLUCOSE; Start 09/28/16 at 02 :30 Diagnostic Test (Pha) (Accu-Chek) 1 ea 02 XX ; Start 09/29/16 at 02:00 Pioglitazone HCl (Actos) 30 mg DAILY PO Last administered on 09/30/16 09:32; Admin Dose 30 MG; Start 09/28/16 at 17:00 Aspirin (Halfprin) 81 mg DAILY PO Last administered on 09/30/16 09:25; Admin Dose 81 MG; Start 09/28/16 at 17:00 Atorvastatin Calcium (Lipitor) 20 mg HS PO Last administered on 09/29/16 21:10 ; Admin Dose 20 MG; Start 09/28/16 at 21:00 Aguilar Mays DO Sep 30, 2016 17:30
[2016-09-30 20:00] VITALS: BP 136/70; PULSE 88; RESP 18
[2016-09-30] MEDS: QUETIAPINE 100 MG TAB PO SCH (20:59)
[2016-09-30] MEDS: MONTELUKAST 10 MG TAB PO SCH (20:59)
[2016-09-30] MEDS: ATORVASTATIN 20 MG TAB PO SCH (20:59)
[2016-10-01] MEDS: ACCUCHECK AT 2AM (Patients on SS coverage) XX SCH (02:00)
[2016-10-01] MEDS: morphine 4 MG/ML VIAL IV PRN ×3 (02:15→20:24)
[2016-10-01 05:59] LABS: ADD SCAN DIFF NO
[2016-10-01 06:11] LABS: BASOPHILS % 0.5 % (0.0-2.0); EOSINOPHILS # 0.1 10^3/ul (0.0-0.5); EOSINOPHILS % 2.1 % (0.0-7.0); HEMATOCRIT 26.8 % (37.0-47.0); HEMOGLOBIN 8.3 g/dl (12.0-16.0); LYMPHOCYTES # 2.3 10^3/ul (0.8-2.9); LYMPHOCYTES % 40.7 % (15.0-51.0); MEAN CORPUSCULAR HEMOGLOBIN 29.7 pg (29.0-33.0); MEAN CORPUSCULAR VOLUME 96.1 fl (82.0-101.0); MEAN PLATELET VOLUME 10.5 fl (7.4-10.4); MONOCYTE # 0.6 10^3/ul (0.3-0.9); NEUTROPHIL # 2.6 10^3/ul (1.6-7.5); NEUTROPHILS % 46.3 % (39.0-77.0); PLATELET COUNT 228 10^3/UL (140-415); RED BLOOD COUNT 2.79 10^6/ul (4.20-5.40); RED CELL DISTRIBUTION WIDTH 13.4 % (11.5-14.5); WHITE BLOOD COUNT 5.7 10^3/ul (4.8-10.8)
[2016-10-01 06:28] LABS: POTASSIUM 3.8 mmol/L (3.5-5.1)
[2016-10-01 06:31] LABS: CREATININE 2.34 mg/dl (0.44-1.00)
[2016-10-01 06:32] LABS: CALCIUM 9.2 mg/dl (8.4-10.2); MAGNESIUM 2.1 mg/dl (1.7-2.5); PHOSPHORUS 4.6 mg/dl (2.5-4.9)
[2016-10-01 07:21] VITALS: BP 127/59; RESP 20
[2016-10-01] MEDS: INSULIN ASPART [NOVOLOG] 3 ML PEN SC SCH ×4 (07:50→20:22)
[2016-10-01] MEDS: PIOGLITAZONE 30 MG TAB PO SCH (08:48)
[2016-10-01] MEDS: SERTRALINE 100 MG TAB PO SCH (08:49)
[2016-10-01] MEDS: FAMOTIDINE 20 MG TAB PO SCH ×2 (08:49→20:21)
[2016-10-01] MEDS: ASPIRIN (EC) 81 MG TAB PO SCH (08:49)
[2016-10-01] MEDS: MOMETASONE 0.24 GM INHALER INH SCH (08:49)
[2016-10-01] MEDS: GABAPENTIN 300 MG CAP PO SCH (08:49)
[2016-10-01] MEDS: FENOFIBRATE 48 MG TAB PO SCH (08:55)
--- NOTE | 2016-10-01 09:04 | RADRPT ---
PROCEDURE: MRI lumbar spine without contrast. CLINICAL INDICATION: Back pain TECHNIQUE: Multiplanar MRI of the lumbar spine without contrast was performed on a 3.0 T scanner ut ilizing the following sequences: T1-weighted, T2-weighted. COMPARISON: None available FINDINGS: There is preservation of the lordosis of the lumbar spine. Alignment is intact. The vertebral bodi es are maintained in height. There is anterior spondylosis more pronounced at L1-2 and L2-3. There are mixed endplate modic changes at L2-3. There is disk space narrowing, moderate - severe at L2-3 , mild - moderate L1-2. Decreased disk intranuclear T2-weighted signal intensity is seen at multipl e levels. There is a superimposed small area increased T2-weighted signal intensity within the L2-3 disk space without associated definite osseous erosive - destructive changes, paraspinal inflammato ry changes or paraspinal - epidural fluid collection seen. The tip of the conus medullaris is visib le at the L1 level and appears unremarkable. T12-L1: The disc is maintained in height. No disc bulge or herniation is identified. There is no c entral canal stenosis or foraminal narrowing. L1-L2: There is minimal posterior disk bulging. There is facet arthropathy with ligamentum flavum hypertrophy. No central canal stenosis is identified. There is mild left foraminal narrowing L2-L3: There is posterior disk bulging. There is facet arthropathy with ligamentum flavum hypertro phy. There is moderate central canal stenosis. There is minimal right and mild - moderate left for aminal narrowing. L3-L4: There is posterior disk bulging. There is facet arthropathy with ligamentum flavum hypertro phy. There is mild central canal stenosis. There is minimal right and mild left foraminal narrowin g. L4-L5: There is post disk bulging. There is facet arthropathy with ligamentum flavum hypertrophy. There is moderate central canal stenosis. There is mild bilateral foraminal narrowing. L5-S1: There is posterior disk bulging. There is advanced facet arthropathy with ligamentum flavum hypertrophy. Small amount of fluid is noted in the left facet joint. No central canal stenosis is identified. There is mild right and severe left foraminal narrowing with suspected compression of the exiting left L5 nerve root. IMPRESSION: 1. Moderate central canal stenosis at L2-3 and L4-5, and mild central canal stenosis at L3-4. 2. Multilevel foraminal narrowing outlined in detail above, most pronounced at L5-S1 where there is severe left foraminal narrowing with suspected compression of the exiting left L5 nerve root. 3. Lumbar spondylosis. Findings are more pronounced at L2-3 where there is a small area of increas ed T2-weighted signal intensity in the disk space without definite associated findings to suggest sp inal infection; this is favored to be on the basis of atypical degenerative changes, but clinical / laboratory correlation is suggested with follow-up as clinically indicated. RPTAT: VV .Silvino Bright MD, MD Date Time Electronically viewed and signed by .Silvino Bright MD, on 10/01/2016 09:04 .O/
--- NOTE | 2016-10-01 09:22 | PN ---
Date/Time of Note Date/Time of Note DATE: 10/01/16 TIME: 09:16 Assessment/Plan VTE Prophylaxis VTE Prophylaxis Intervention: SCD's Lines/Catheters IV Catheter Type (from Nrs): Saline Lock Urinary Cath still in place: No Assessment/Plan Chief Complaint/Hosp Course Assessment/Plan: 56-year-old female who presents with: 1. Chest pain likely MAGI - serial cardiac enzymes have remained negative, ECG without any significant abnormalities as mentioned previously an echocardiogram within normal limits. 2. Acute kidney injury, with possible chronic kidney disease - improving.Etiology is multifactorial secondary to acute kidney injury, TONYA inhibitor effect, and NSAID use. - monitor for now 3. LUE paresis and paresthesias : May be associated with #[address] imaging concerning for radiculopathy and reviewed with Dr Herrera who recommended MRI, which showed: Predominant left-sided facet degenerative change and mild uncinate spurring leads to moderate left-sided foraminal narrowing at C4-5 and mild left foraminal narrowing at C2-3, C3-4 and C5-6. No evidence for central stenosis. Normal cervical spinal cord. - continue current pain meds 4. Severe disabling carlos Low back pain - will consult pain mngt team as well given pt's continued smpts. 5 . Hyperkalemia 2/2 #2: resolved 6. Diabetes Type 2: good control - continue Calorie controlled diet / SSI / home meds 7. Hypertension : well controlled - monitor 8. Dyslipidemia. 9. Morbid obesity BMI 35 10. Chronic Depression - continue current meds. 11. History of asthma continue current meds 12. Cervical and lumbar spine radiculopathy - see # 3. PRN pain control/ antiemetics/ antipyretics/ supportive care Further interventions per clinical course Prophylaxis SCDS/ Pepcid Problems: Subjective 24 Hr Interval Summary Free Text/Dictation Pt still complaining of some LBP, MRI performed. Exam/Review of Systems Vital Signs Vitals Vital Signs Date Time Temp Pulse Resp B/P Pulse Ox O2 Delivery O2 Flow Rate FiO2 10/01/16 07:21 98.0 58 20 127/59 96 09/30/16 20:00 Room Air 09/29/16 19:54 2.0 Intake and Output 09/30/16 09/30/16 10/01/16 15:00 23:00 07:00 Intake Total 1000 ml Balance 1000 ml Exam Constitutional: alert, obese, No distress Psych: other (blank affect at times) Head: atraumatic, normocephalic Eyes: PERRL, No icteric ENMT: mucosa pink and moist Neck: non-tender, supple, No jvd, No thyromegaly Respiratory: clear to auscultation, diminished breath sounds Cardiovascular: regular rate and rhythm, No murmurs/extra sounds Gastrointestinal: bowel sounds, distended (obese), non-tender, soft Extremities: edema (mild, non pitting versus obese) Neurological: nl mental status, nl speech, No confused, No focal weakness Skin: No rash or lesions Results Result Diagram: 10/01/16 0531 10/01/16 0531 Results 24 hrs Laboratory Tests Test 09/30/16 11:57 09/30/16 17:43 09/30/16 20:58 10/01/16 05:31 Bedside Glucose 145 126 122 White Blood Count 5.7 Red Blood Count 2.79 L Hemoglobin 8.3 L Hematocrit 26.8 L Mean Corpuscular Volume 96.1 Mean Corpuscular Hemoglobin 29.7 Mean Corpuscular Hemoglobin Concent 31.0 L Red Cell Distribution Width 13.4 Platelet Count 228 Mean Platelet Volume 10.5 H Neutrophils % 46.3 Lymphocytes % 40.7 Monocytes % 10.0 Eosinophils % 2.1 Basophils % 0.5 Nucleated Red Blood Cells % 0.0 Neutrophils # 2.6 Lymphocytes # 2.3 Monocytes # 0.6 Eosinophils # 0.1 Basophils # 0.0 Nucleated Red Blood Cells # 0.0 Sodium Level 142 Potassium Level 3.8 Chloride Level 101 Carbon Dioxide Level 28 Anion Gap 17 H Blood Urea Nitrogen 78 H Creatinine 2.34 H Glucose Level 116 Calcium Level 9.2 Phosphorus Level 4.6 Magnesium Level 2.1 Test 10/01/16 07:48 Bedside Glucose 136 Medications Medications Current Medications Lorazepam (Ativan) 0.5 mg Q8H PRN PO ANXIETY; Start 09/28/16 at 00:00 Metoclopramide HCl (Reglan) 10 mg Q6H PRN IV NAUSEA AND/OR VOMITING Last administered on 09/28/16t 01:59; Admin Dose 10 MG; Start 09/28/16 at 00:00 Nitroglycerin (Nitroglycerin (Sl Tab) 0.4 Mg) 1 tab Q5M PRN SL CHEST PAIN; Start 09/28/16 at 00:00 Acetaminophen (Tylenol Tab) 650 mg Q6H PRN PO PAIN LEVEL 1-3 OR FEVER Last administered on 09/30/16 09:30; Admin Dose 650 MG; Start 09/28/16 at 00:00 Morphine Sulfate (morphine) 4 mg Q4H PRN IV PAIN LEVEL 7-10 Last administered on 10/01/16 02:15; Admin Dose 4 MG; Start 09/28/16 at 00:00 Famotidine (Pepcid) 20 mg Q12 PO Last administered on 10/01/16 08:49; Admin Dose 20 MG; Start 09/28/16 at 09:00 Fenofibrate (Tricor) 48 mg DAILY PO Last administered on 10/01/16 08:55; Admin Dose 48 MG; Start 09/28/16 at 11:00 Gabapentin (Neurontin) 300 mg DAILY PO Last administered on 10/01/16 08:49; Admin Dose 300 MG; Start 09/28/16 at 11:00 Montelukast Sodium (Singulair) 10 mg QHS PO Last administered on 09/30/16 20: 59; Admin Dose 10 MG; Start 09/28/16 at 21:00 Quetiapine Fumarate (Seroquel) 200 mg HS PO Last administered on 09/30/16 20: 59; Admin Dose 200 MG; Start 09/28/16 at 21:00 Sertraline HCl (Zoloft) 100 mg DAILY PO Last administered on 10/01/16 08:49; Admin Dose 100 MG; Start 09/28/16 at 11:00 Mometasone Furoate (Asmanex) 1 puff DAILY INH Last administered on 10/01/16 08 :49; Admin Dose 1 PUFF; Start 09/29/16 at 09:00 Miscellaneous Information 1 ea NOTE XX ; Start 09/28/16 at 02:30 Glucose (Glutose) 15 gm Q15M PRN PO DECREASED GLUCOSE; Start 09/28/16 at 02:30 Glucose (Glutose) 22.5 gm Q15M PRN PO DECREASED GLUCOSE; Start 09/28/16 at 02: 30 Dextrose (D50w Syringe) 25 ml Q15M PRN IV DECREASED GLUCOSE Last administered on 09/28/16 04:03; Admin Dose 50 ML; Start 09/28/16 at 02:30 Dextrose (D50w Syringe) 50 ml Q15M PRN IV DECREASED GLUCOSE; Start 09/28/16 at 02:30 Glucagon (Glucagen) 1 mg Q15M PRN IM DECREASED GLUCOSE; Start 09/28/16 at 02:30 Glucose (Glutose) 15 gm Q15M PRN BUCCAL DECREASED GLUCOSE; Start 09/28/16 at 02 :30 Diagnostic Test (Pha) (Accu-Chek) 02 XX ; Start 09/29/16 at 02:00 Pioglitazone HCl (Actos) 30 mg DAILY PO Last administered on 10/01/16 08:48; Admin Dose 30 MG; Start 09/28/16 at 17:00 Aspirin (Halfprin) 81 mg DAILY PO Last administered on 10/01/16 08:49; Admin Dose 81 MG; Start 09/28/16 at 17:00 Atorvastatin Calcium (Lipitor) 20 mg HS PO Last administered on 09/30/16 20:59 ; Admin Dose 20 MG; Start 09/28/16 at 21:00 PRASHANT MEYER Oct 01, 2016 09:22
--- NOTE | 2016-10-01 11:25 | PN ---
DATE: 10/01/2016 SUBJECTIVE: The patient continues to have pain in the upper extremities. No fevers, chills, nausea , vomiting. OBJECTIVE: VITAL SIGNS: Blood pressure 127/59, respiratory rate 20, pulse 58, temperature 98.0. HEENT: Head is normocephalic. NECK: Supple. HEART: Regular rate. LUNGS: Show diminished breath sounds at base. ABDOMEN: Soft, nontender to palpation without rebound or guarding. EXTREMITIES: Negative for clubbing, cyanosis, edema. DERMATOLOGIC: No rashes. MUSCULOSKELETAL: No joint effusions. NEUROLOGIC: No change in exam. MEDICATIONS: The patient's medications have been reviewed. LABORATORY DATA: Shows white count 5.7, hemoglobin 9.3, hematocrit 36.8, platelet count 228. Sodiu m 142, potassium 3.8, chloride 100, BUN 78, creatinine 2.34. IMAGING: Patient's MRI of lumbar and cervical spine was reviewed. ASSESSMENT AND PLAN: 1. Nonoliguric acute kidney injury on top of chronic kidney disease with previous baseline creatini ne of 1.0 mg, last seen in 2014. Etiology of acute kidney injury is multifactorial secondary to hem odynamics, possible tubular injury due to diuretic use, NSAIDs and TONYA inhibitor effect. The patien t's renal function has been improving with supportive care and holding diuretic therapy. At this po int, continue current treatment plan. Continue supportive care, renally dose all meds, avoid nephro toxins. 2. Mineral bone disease. Continue to monitor calcium and phosphorus levels. 3. Anemia. Continue to monitor hemoglobin and hematocrit levels. 4. Radiculopathy. The patient's MRI shows evidence of stenosis. Neurosurgical consult is pending. 5. Diabetes. Continue current insulin regimen. 6. Hypertension. Patient is normotensive. Continue current blood pressure regimen. Continue to m onitor. 7. Dyslipidemia. Continue statin therapy. 8. Depression. Continue Zoloft. Dictated By: EDMOND PEARCE/NAHUM Conf#: [id number] DID#: [id number]
--- NOTE | 2016-10-01 14:19 | CONS ---
Date/Time of Note Date/Time of Note DATE: 10/01/16 TIME: 14:17 Assessment/Plan Assessment/Plan Additional Assessment/Plan Back, neck and arm pain Preserved ejection fraction Acute kidney injury Preserved ejection fraction Hypertension Psychiatric disorder Possible spinal stenosis -Patient continues to deny chest pain, serial cardiac enzymes have remained negative, ECG without any significant abnormalities as mentioned previously an echocardiogram within normal limits. Blood pressure trend remains stable. Undergoing evaluation for spinal stenosis. No further inpatient cardiac workup needed at the current time. Consultation Date/Type/Reason Admit Date/Time Sep 27, 2016 at 23:43 Type of Consultation: cv 24 HR Interval Summary Free Text/Dictation Denies chest pain, shortness of breath. Sitting up and eating lunch Exam/Review of Systems Vital Signs Vitals Vital Signs Date Time Temp Pulse Resp B/P Pulse Ox O2 Delivery O2 Flow Rate FiO2 10/01/16 07:21 98.0 58 20 127/59 96 09/30/16 20:00 Room Air 09/29/16 19:54 2.0 Intake and Output 09/30/16 09/30/16 10/01/16 15:00 23:00 07:00 Intake Total 1000 ml Balance 1000 ml Exam Sitting up and eating lunch, no apparent distress Constitutional: alert, obese, oriented Head: normocephalic Respiratory: other (Coarse breath sounds bilaterally, no wheezing) Cardiovascular: other (S1-S2 heard), regular rate and rhythm Gastrointestinal: bowel sounds, non-tender, soft Extremities: edema Results Result Diagram: 10/01/16 0531 10/01/16 0531 Results 24 hrs Laboratory Tests Test 09/30/16 17:43 09/30/16 20:58 10/01/16 05:31 10/01/16 07:48 Bedside Glucose 126 122 136 White Blood Count 5.7 Red Blood Count 2.79 L Hemoglobin 8.3 L Hematocrit 26.8 L Mean Corpuscular Volume 96.1 Mean Corpuscular Hemoglobin 29.7 Mean Corpuscular Hemoglobin Concent 31.0 L Red Cell Distribution Width 13.4 Platelet Count 228 Mean Platelet Volume 10.5 H Neutrophils % 46.3 Lymphocytes % 40.7 Monocytes % 10.0 Eosinophils % 2.1 Basophils % 0.5 Nucleated Red Blood Cells % 0.0 Neutrophils # 2.6 Lymphocytes # 2.3 Monocytes # 0.6 Eosinophils # 0.1 Basophils # 0.0 Nucleated Red Blood Cells # 0.0 Sodium Level 142 Potassium Level 3.8 Chloride Level 101 Carbon Dioxide Level 28 Anion Gap 17 H Blood Urea Nitrogen 78 H Creatinine 2.34 H Glucose Level 116 Calcium Level 9.2 Phosphorus Level 4.6 Magnesium Level 2.1 Test 10/01/16 11:59 Bedside Glucose 154 Medications Medications Current Medications Lorazepam (Ativan) 0.5 mg Q8H PRN PO ANXIETY; Start 09/28/16 at 00:00 Metoclopramide HCl (Reglan) 10 mg Q6H PRN IV NAUSEA AND/OR VOMITING Last administered on 09/28/16 01:59; Admin Dose 10 MG; Start 09/28/16 at 00:00 Nitroglycerin (Nitroglycerin (Sl Tab) 0.4 Mg) 1 tab Q5M PRN SL CHEST PAIN; Start 09/28/16 at 00:00 Acetaminophen (Tylenol Tab) 650 mg Q6H PRN PO PAIN LEVEL 1-3 OR FEVER Last administered on 09/30/16 09:30; Admin Dose 650 MG; Start 09/28/16 at 00:00 Morphine Sulfate (morphine) 4 mg Q4H PRN IV PAIN LEVEL 7-10 Last administered on 10/01/16 13:41; Admin Dose 4 MG; Start 09/28/16 at 00:00 Famotidine (Pepcid) 20 mg Q12 PO Last administered on 10/01/16 08:49; Admin Dose 20 MG; Start 09/28/16 at 09:00 Fenofibrate (Tricor) 48 mg DAILY PO Last administered on 10/01/16 08:55; Admin Dose 48 MG; Start 09/28/16 at 11:00 Gabapentin (Neurontin) 300 mg DAILY PO Last administered on 10/01/16 08:49; Admin Dose 300 MG; Start 09/28/16 at 11:00 Montelukast Sodium (Singulair) 10 mg QHS PO Last administered on 09/30/16 20: 59; Admin Dose 10 MG; Start 09/28/16 at 21:00 Quetiapine Fumarate (Seroquel) 200 mg HS PO Last administered on 09/30/16 20: 59; Admin Dose 200 MG; Start 09/28/16 at 21:00 Sertraline HCl (Zoloft) 100 mg DAILY PO Last administered on 10/01/16 08:49; Admin Dose 100 MG; Start 09/28/16 at 11:00 Mometasone Furoate (Asmanex) 1 puff DAILY INH Last administered on 10/01/16 08 :49; Admin Dose 1 PUFF; Start 09/29/16 at 09:00 Miscellaneous Information 1 ea NOTE XX ; Start 09/28/16 at 02:30 Glucose (Glutose) 15 gm Q15M PRN PO DECREASED GLUCOSE; Start 09/28/16 at 02:30 Glucose (Glutose) 22.5 gm Q15M PRN PO DECREASED GLUCOSE; Start 09/28/16 at 02: 30 Dextrose (D50w Syringe) 25 ml Q15M PRN IV DECREASED GLUCOSE Last administered on 09/28/16 04:03; Admin Dose 50 ML; Start 09/28/16 at 02:30 Dextrose (D50w Syringe) 50 ml Q15M PRN IV DECREASED GLUCOSE; Start 09/28/16 at 02:30 Glucagon (Glucagen) 1 mg Q15M PRN IM DECREASED GLUCOSE; Start 09/28/16 at 02:30 Glucose (Glutose) 15 gm Q15M PRN BUCCAL DECREASED GLUCOSE; Start 09/28/16 at 02 :30 Diagnostic Test (Pha) (Accu-Chek) 1 ea 02 XX ; Start 09/29/16 at 02:00 Pioglitazone HCl (Actos) 30 mg DAILY PO Last administered on 10/01/16 08:48; Admin Dose 30 MG; Start 09/28/16 at 17:00 Aspirin (Halfprin) 81 mg DAILY PO Last administered on 10/01/16 08:49; Admin Dose 81 MG; Start 09/28/16 at 17:00 Atorvastatin Calcium (Lipitor) 20 mg HS PO Last administered on 09/30/16 20:59 ; Admin Dose 20 MG; Start 09/28/16 at 21:00 Aguilra Mays DO Oct 01, 2016 14:19
[2016-10-01 17:12] LABS: MICROALBUMIN 0.3 mg/dL
[2016-10-01 19:31] VITALS: RESP 18
--- NOTE | 2016-10-01 19:42 | CONS ---
DATE OF ADMISSION: 09/27/2016 DATE OF CONSULTATION: 10/01/2016 TYPE OF CONSULTATION: Neurosurgery. REQUESTING PHYSICIAN: Dr. Carmen Hu, the hospitalist. HISTORY OF PRESENT ILLNESS: This is a 56-year-old female with past medical history significant for hypertension, asthma, depression, dyslipidemia, diabetes, and history of chronic kidney disease who presented to [facility] with chest pain on the left and left shoulder. The patien t was admitted for further workup. She was also found to have elevated creatinine and is being furt her worked up for kidney injury. A neurosurgery consult was requested for further evaluation of the patient's low back pain as well as her reported left upper extremity pain. The patient tells me th at she has had ____ axial low back pain for the past 2 to 3 months. She has only been evaluated by her primary care physician. She has a pending referral to pain management, but has not been seen by any other physicians regarding her low back pain. The patient has not had any physical therapy for the treatment of her low back pain. She does not have any pain radiating down bilateral lower extr emities. She does not have any numbness involving her bilateral lower extremities. She also denies any weakness of her upper or lower extremities. The patient's chest pain has resolved. She does n ot have any further pain radiating to her left shoulder. She denies any weakness or numbness of her upper extremities. She only has mild neck pain. The patient is right-handed. She denies any lack of coordination or fine motor movements with her upper extremities. She denies any decreased ivory ce or difficulty with her gait. PAST MEDICAL HISTORY: As noted above. PAST SURGICAL HISTORY: Hysterectomy and appendectomy. FAMILY HISTORY: Noncontributory. ALLERGIES: NO KNOWN DRUG ALLERGIES. SOCIAL HISTORY: The patient denies smoking tobacco. She denies drinking alcoholic beverages. She denies use of illicit or recreational drugs. REVIEW OF SYSTEMS: Please see above for pertinent positives and negatives. PHYSICAL EXAMINATION: GENERAL: The patient is sitting in her hospital bed. She is awake, alert, oriented x4. HEENT: Her face is symmetric. Tongue is midline. Extraocular movements are intact. Pupils are eq ually round and reactive to light. She appears to be obese. She is in no apparent distress. MUSCULOSKELETAL: Muscle bulk and tone is normal, bilateral upper and lower extremities. Motor stre ngth is 5-/5 bilateral upper and lower extremities proximally and distally. Deep tendon reflexes ar e 1+ bilateral upper and lower extremities. Sensation to light touch is grossly normal, bilateral u pper and lower extremities. There is no Grant sign. There is no pronator drift. Toes are downgo ing bilaterally. The patient does not have any significant tenderness involving the posterior cervi gino spine. She has mild to moderate tenderness involving the midline lumbar and over the bilateral paraspinal lumbar areas. The patient's regular and tandem gait is grossly normal. IMAGING: The patient has received MRI of the cervical and lumbar spine. The MRI studies show some mild multilevel degenerative changes in the cervical and lumbar spine. There is no evidence of any fractures or subluxation noted. There is no evidence of significant central canal compression invol ving the cervical or lumbar spine. The patient has moderate left C4-C5 neural foraminal stenosis th at puts some pressure on the exiting left C5 nerve root. The patient has mild lateral recess stenos is and foraminal stenoses in the lumbar spine at multiple levels. ASSESSMENT AND PLAN: This is a middle-aged female with multiple medical problems admitted for chest pain that has since resolved and for further workup of kidney injury. The patient, at this point, is asymptomatic regarding any pain that was radiating to her left shoulder. It is certainly possibl e that the patient may develop a left C5 radicular pain as a result of the left C4-C5 neural foramin al stenosis, but the patient is currently asymptomatic. In regards to the patient's lumbar spine, s he unfortunately has not had any adequate conservative treatment for her isolated low back pain with out lumbar radiculopathy. The starting point for treatment of low back pain would include core stre ngthening physical therapy and the patient may be referred to pain management for further treatment. The patient already has a pending referral to a pain management physician as she tells me. There is no acute neurosurgical intervention indicated. The patient can follow up with neurosurgery on an as needed basis. Dictated By: ROD MAY MD SA/NAHUM Conf#: [id number] DID#: [id number] CC: SEPIDEH ESCALANTE MD;*EndCC*
[2016-10-01] MEDS: ATORVASTATIN 20 MG TAB PO SCH (20:21)
[2016-10-01] MEDS: QUETIAPINE 100 MG TAB PO SCH (20:21)
[2016-10-01] MEDS: MONTELUKAST 10 MG TAB PO SCH (20:21)
[2016-10-02] MEDS: ACCUCHECK AT 2AM (Patients on SS coverage) XX SCH (01:40)
[2016-10-02 06:51] LABS: POTASSIUM 3.8 mmol/L (3.5-5.1)
[2016-10-02 06:54] LABS: CREATININE 2.08 mg/dl (0.44-1.00)
[2016-10-02 06:55] LABS: CALCIUM 9.3 mg/dl (8.4-10.2); PHOSPHORUS 4.5 mg/dl (2.5-4.9)
[2016-10-02 07:55] VITALS: BP 121/63; RESP 16
[2016-10-02] MEDS: INSULIN ASPART [NOVOLOG] 3 ML PEN SC SCH (08:15)
[2016-10-02] MEDS: FAMOTIDINE 20 MG TAB PO SCH (08:25)
[2016-10-02] MEDS: PIOGLITAZONE 30 MG TAB PO SCH (08:25)
[2016-10-02] MEDS: ASPIRIN (EC) 81 MG TAB PO SCH (08:25)
[2016-10-02] MEDS: SERTRALINE 100 MG TAB PO SCH (08:25)
[2016-10-02] MEDS: MOMETASONE 0.24 GM INHALER INH SCH (08:25)
[2016-10-02] MEDS: GABAPENTIN 300 MG CAP PO SCH (08:25)
[2016-10-02] MEDS: FENOFIBRATE 48 MG TAB PO SCH (08:25)
[2016-10-02] MEDS: ACETAMINOPHEN 325 MG TAB PO PRN (08:27)
--- NOTE | 2016-10-02 09:15 | PDOCDIS ---
Discharge Instructions CONDITION Patient Condition: Stable HOME CARE INSTRUCTIONS: Special Diet: 2GM Na+ 1800 HUDSON DIET ACTIVITY: Activity Restrictions: Slowly Increase Activity FOLLOW UP/APPOINTMENTS Appointments Please take your medications as prescribed, and see your doctor in the clinic in 1 week. PRASHANT MEYER Oct 02, 2016 09:15
--- NOTE | 2016-10-02 10:10 | DS ---
DATE OF ADMISSION: 09/27/2016 DATE OF DISCHARGE: 10/02/2016 HOSPITAL COURSE: This is a 56-year-old female originally admitted on 09/27/2016, being discharged h [facility] on 10/02/2016. The patient initially came in with chest pain and also some hyperkalemia. She w as admitted, seen by cardiology team, renal team, and neurosurgery team during this hospital stay. This patient's chest pain was thought likely to be musculoskeletal in origin as she ruled out for ac port gamble coronary syndrome. She had an echocardiogram performed that showed an ejection fraction of 70%. There was hyperdynamic left ventricular systolic function, normal left ventricular cavity size and wall thickness. There was some stage I diastolic dysfunction, but overall no significant valvular stenosis or regurgitation was seen. The patient's chest pain symptoms improved; however, she was ash ving left upper extremity paresis and paresthesias and she had some imaging studies performed of her C-spine and L-spine and she was evaluated by neurosurgery team as well because on her C-spine MRI t here was some left-sided facet degenerative changes and mild uncinate spurring leading to moderate l eft-sided foraminal narrowing at C4-C5 and mild left foraminal narrowing at C2-C3 and C3-C4 and C5-C 6, but no evidence for any central stenosis and normal cervical spinal cord. Her lumbar MRI of the spine also showed moderate central canal stenosis at L2-L3 and L4-L5 with mild central canal stenosi s at L3-L4, multilevel foraminal narrowing most pronounced at L5-S1 where there is severe left jessie inal narrowing with suspected compression of the exiting left L5 nerve root. Lumbar spondylosis was also seen most pronounced at L2-L3 where there was a small area of increased T2 weighted signal int ensity in the disk space, but no definite associated findings to suggest a spinal infection. So in any event the recommendations from the neurosurgery team were treatment for her low back pain which would include core strengthening, physical therapy which we will set up, home health physical therap y at home, and also patient being referred to pain management doctor which she will be seeing as an outpatient and there was no acute neurosurgical intervention indicated at this time. The patient al so had some renal insufficiency, was seen by renal team. Her renal insufficiency was thought to be secondary to diuretic use and NSAID use and TONYA inhibitor effect, but her creatinine was trending do wn to baseline levels by the time of discharge as we held the NSAIDs and TONYA inhibitor as well. Bec ause the patient's low back pain has improved, her left upper extremity paresis has improved, and mikala anderson has no more significant chest pain, she is able to ambulate and tolerate a p.o. diet, we will be d ischarging her home today in an improved condition. DISCHARGE MEDICATIONS: She will be sent with the following medications: 1. Albuterol HFA inhaled q.4 hours p.r.n. 2. Cyclobenzaprine 5 mg t.i.d. 3. Diclofenac 75 mg b.i.d. 4. Fenofibrate 54 mg daily. 5. Flovent inhaled daily. 6. Lasix 40 mg daily. 7. Gabapentin 300 mg daily. 8. Blackwell 10/325 q.6 p.r.n. 7. Lisinopril 2.5 mg daily. 9. Metformin 1000 mg b.i.d. 10. Singulair 10 mg at bedtime. 11. Niacin 1000 mg daily. 12. Actos 30 mg daily. 13. K-Dur 20 mEq daily. 14. Seroquel 200 mg at bedtime. 15. Zoloft 100 mg daily. She needs to follow with pain management doctor, primary care doctor in the clinic in the next 1 to 2 weeks. FINAL DIAGNOSES: 1. Chest pain, ruled out for acute coronary syndrome. 2. Acute kidney injury with possible chronic kidney disease, now improved. 3. Left upper extremity paresis and paresthesias. No neurosurgical intervention required at this t kenrick despite some left C4-C5 neural foraminal stenosis. Medical management at this time. 4. Type 2 diabetes. A1c of 6.1. 5. Hyperkalemia, resolved. 6. Morbid obesity, BMI of 35. 7. Chronic depression. 8. History of asthma. 9. Cervical and lumbar spine radiculopathy. 10. Hypertension, essential. Time spent discharging the patient 50 minutes. Dictated By: PRASHANT MARKS Conf#: [id number] DID#: [id number]
--- NOTE | 2016-10-02 10:59 | PN ---
DATE: 10/02/2016 SUBJECTIVE: The patient is stable, no acute events noted. No fevers, chills, nausea or vomiting. No shortness of breath. OBJECTIVE: VITAL SIGNS: Blood pressure is 121/62, respirations 16, pulse 76, temperature 98.3. HEENT: Head is normocephalic. NECK: Supple. HEART: Regular rate. LUNGS: Show diminished breath sounds at the bases. ABDOMEN: Soft, nontender to palpation. No rebound or guarding. EXTREMITIES: Negative for clubbing, cyanosis. No edema. DERMATOLOGIC: No rashes. MUSCULOSKELETAL: No joint effusions. NEUROLOGIC: No change in exam. MEDICATIONS: The patient's medications have been reviewed. LABORATORY DATA: Shows sodium 142, potassium 3.8, chloride 99, BUN 72, creatinine 2.08. White coun t 5.7, hemoglobin 8.3, hematocrit 26.8, platelet count 220. ASSESSMENT AND PLAN: 1. Nonoliguric acute kidney injury on top of chronic kidney disease with previous baseline creatini ne of 1.0 mg/dL in 2013. Etiology of current acute kidney injury secondary to hemodynamics, possibl e acute tubular necrosis due to NSAID use, TONYA inhibitor effect. The patient's renal function has b een improving with supportive care and holding NSAIDs. At this point, continue current treatment pl an, supportive care, renally dose all meds. 2. Mineral bone disorder. Continue to monitor calcium and phosphorus levels. 3. Anemia. Continue to monitor hemoglobin and hematocrit levels. 4. Radiculopathy. The patient has been evaluated by neurosurgery. No need for neurosurgical inter vention. The patient will need pain control. 5. Diabetes. Continue current insulin regimen. 6. Hypertension. The patient is currently normotensive. We will continue to monitor. 7. Dyslipidemia. Continue statin therapy. 8. Depression. Continue Zoloft. Dictated By: EDMOND PEARCE/NAHUM Conf#: [id number] DID#: [id number]
== END 2016-10-02 11:45 | disposition home health service (06) | DRG 684 ==
LOC: E/R 18:08 → MS4 23:43 → MS2 09-30 06:30
PROVIDERS: ADMIT Family Medicine; ATTEND Family Medicine
DX: N17.9 Acute kidney failure, unspecified (principal); E11.22 Type 2 diabetes mellitus with diabetic chronic kidney disease; E87.5 Hyperkalemia; E83.39 Other disorders of phosphorus metabolism; E66.01 Morbid (severe) obesity due to excess calories; D63.8 Anemia in other chronic diseases classified elsewhere; I12.9 Hypertensive chronic kidney disease with stage 1 through stage 4 chronic kidney disease, or unspecified chronic kidney disease; R07.9 Chest pain, unspecified; J45.909 Unspecified asthma, uncomplicated; E78.5 Hyperlipidemia, unspecified; F32.9 Major depressive disorder, single episode, unspecified; M54.5 Low back pain; M54.16 Radiculopathy, lumbar region; M54.12 Radiculopathy, cervical region; N18.9 Chronic kidney disease, unspecified; Z68.35 Body mass index [BMI] 35.0-35.9, adult; Z79.4 Long term (current) use of insulin; Z90.710 Acquired absence of both cervix and uterus
CPT/HCPCS: 36415; 70450; 71010; 72125; 72141; 72148; 74176; 76775; 80048; 80061; 81001; 81003; 82043; 82550; 82553; 82962; 83036; 83735; 84100; 84155; 84300; 84443; 84484; 85025; 85610; 85730; 93005; 93306; 93970; 96374; 96375; 96376; 97162; J1815; J1940; J2270; J2765

== ENCOUNTER 2017-11-26 13:35 | Inpatient (IN) | END 2017-12-03 11:45 | disposition home health service (06) | DRG 551 ==